=== PATIENT | female | born 1960 | race African-American/Black ===

== ENCOUNTER 2017-02-17 08:25 | Emergency (ER) | payer OTHER ==
[~2017-02-17] VITALS: Ht 165.1 cm; Wt 110.0 kg
[~2017-02-17 08:25] MED LIST: AMLO10TA2 PO; CARDCAP2 PO; DILA8TAB4 PO; GABA800T PO; GLUCTES27 XX; LEVEMIR SQ; LISI-515 PO; NAPR220T95 PO
[2017-02-17 08:26] VITALS: BP 201/88; PULSE 72; RESP 18; TEMP 98; O2SAT 99
[2017-02-17 08:46] VITALS: BP 153/73; PULSE 63; RESP 18; O2SAT 97
[2017-02-17] MEDS ORDERED: INSULIN HUMAN REGULAR 1,000 UNITS/10 ML VIAL IVP ONE (09:00)
[2017-02-17] MEDS ORDERED: SODIUM CHLOR 0.9% 1000 ML INJ 1,000 ML IV ONE (09:00)
[2017-02-17] MEDS ORDERED: ONDANSETRON HCL 4 MG/2 ML VIAL IVP ONE (09:00)
[2017-02-17] MEDS ORDERED: SODIUM CHLORIDE 0.9% FLUSH 5 ML FLUSH IVF PRN (09:00)
--- NOTE | 2017-02-17 09:07 | PD ---
HPI Chief Complaint: Abdominal Pain Time Seen by Provider: 08:42 Travel History International Travel<30 days: No Contact w/Intl Traveler<30days: No Traveled to known affect area: No History of Present Illness HPI The patient was seen and examined in the presence of the nurse. She complains of abdominal pain. Location is bilateral lower quadrant. Duration 3 days. Severity is moderate. No alleviating factors. She was drinking alcohol 3 days ago on the day it started. She is insulin-dependent diabetic and ran out of her insulin 2 days ago. She doesn't check her blood sugar. Compliance is poor. PFSH Past Medical History Hx Anticoagulant Therapy: No Arthritis: Yes Blood Disorders: No Anxiety: No Depression: No Heart Rhythm Problems: No Cancer: No Cardiovascular Problems: Yes High Cholesterol: Yes Chemotherapy: No Chest Pain: No Congestive Heart Failure: No Cerebrovascular Accident: No Diabetes: Yes Patient Takes Glucophage: No Diminished Hearing: No Endocrine: Yes Gastrointestinal Disorders: Yes GERD: Yes Genitourinary: No Hiatal Hernia: No Hypertension: Yes Immune Disorder: No Implanted Vascular Access Dvce: No Musculoskeletal: Yes Neurologic: No Psychiatric: No Reproductive: No Respiratory: No Immunizations Current: Yes Pneumonia: Yes Sickle Cell Disease: Yes (trait) Thyroid Disease: No Ulcer: No ?: Not Menopausal: Yes : 2 Para: 1 Miscarriage: 1 Past Surgical History Abdominal Surgery: No Arteriovenous Shunt: No Cardiac Surgery: No Section: Yes Ear Surgery: No Endocrine Surgery: No Eye Surgery: No Gynecologic Surgery: Yes (CSECTION) Hysterectomy: No Insulin Pump: No Joint Replacement: No Neurologic Surgery: No Oral Surgery: No Pacemaker: No Thoracic Surgery: No Other Surgery: Yes (C SECTION) Social History Alcohol Use: Yes (2-3 DRINKS WEEKLY) Tobacco Use: Yes Substance Use: No Allergies-Medications (Allergen,Severity, Reaction): Coded Allergies: Tetanus Toxoid (Verified Allergy, Severe, "SWELLING", 02/17/17) Reported Meds & Prescriptions Reported Meds & Active Scripts Active Gabapentin 800 Mg Tab 800 Mg PO BID Levemir Inj (Insulin Detemir) 1,000 unit/ 10 ML Vial 60 Units SQ BID 30 Days Do not mix with any other Insulin. Reported Lisinopril 20 Mg Tab 20 Mg PO BID Aleve (Naproxen Sodium) 220 Mg Tab 440 Mg PO BID PRN Daily Multivitamin (Multiple Vitamins W/ Minerals) 1 Cap Cap 1 Tab PO DAILY Amlodipine (Amlodipine Besylate) 10 Mg Tab 10 Mg PO DAILY Review of Systems General / Constitutional: No: Fever Eyes: No: Visual changes HENT: No: Headaches Cardiovascular: No: Chest Pain or Discomfort Respiratory: No: Shortness of Breath Gastrointestinal: Positive: Nausea, Abdominal Pain Genitourinary: No: Dysuria Musculoskeletal: No: Pain Skin: No Rash Neurologic: No: Weakness Psychiatric: No: Depression Endocrine: No: Polydipsia Hematologic/Lymphatic: No: Easy Bruising Physical Exam Narrative GENERAL: Well-nourished, well-developed patient in no apparent distress. SKIN: Warm and dry. HEAD: Atraumatic. Normocephalic. EYES: Pupils equal and round. No scleral icterus. No injection or drainage. ENT: No nasal bleeding or discharge. Mucous membranes pink and moist. NECK: Trachea midline. No JVD. CARDIOVASCULAR: Regular rate and rhythm. No murmur appreciated. RESPIRATORY: No accessory muscle use. Clear to auscultation. Breath sounds equal bilaterally. GASTROINTESTINAL: Abdomen soft, mild bilateral lower quadrant tenderness without rebound or guarding, nondistended. Hepatic and splenic margins not palpable. MUSCULOSKELETAL: No obvious deformities. No clubbing. No cyanosis. No edema. NEUROLOGICAL: Awake and alert. No obvious cranial nerve deficits. Motor grossly within normal limits. Normal speech. PSYCHIATRIC: Appropriate mood and affect; insight and judgment poor . Data Data Last Documented VS Vital Signs Date Time Temp Pulse Resp B/P Pulse Ox O2 Delivery O2 Flow Rate FiO2 02/17/17 11:53 174/87 02/17/17 11:11 63 18 98 02/17/17 08:46 Room Air 02/17/17 08:26 98.0 Orders Complete Blood Count With Diff (02/17/17 08:51) Comprehensive Metabolic Panel (02/17/17 08:51) Lipase (02/17/17 08:51) Prothrombin Time / Inr (Pt) (02/17/17 08:51) Act Partial Throm Time (Ptt) (02/17/17 08:51) Urinalysis - C+S If Indicated (02/17/17 08:51) Ct Abd/Pel W Iv Contrast(Rout) (02/17/17 08:51) Iv Access Insert/Monitor (02/17/17 08:51) NPO (02/17/17 08:51) Ondansetron Inj (Zofran Inj) (02/17/17 09:00) Sodium Chloride 0.9% Flush (Ns Flush) (02/17/17 09:00) Sodium Chlor 0.9% 1000 Ml Inj (Ns 1000 M (02/17/17 09:00) Insulin Human Regular Inj (Novolin R Inj (02/17/17 09:00) Morphine Inj (Morphine Inj) (02/17/17 11:00) Iohexol 350 Inj (Omnipaque 350 Inj) (02/17/17 11:14) Labs Laboratory Tests Test 02/17/17 02/17/17 09:40 09:44 White Blood Count 5.6 TH/MM3 Red Blood Count 4.17 MIL/MM3 Hemoglobin 12.2 GM/DL Hematocrit 37.0 % Mean Corpuscular Volume 88.8 FL Mean Corpuscular Hemoglobin 29.4 PG Mean Corpuscular Hemoglobin 33.1 % Concent Red Cell Distribution Width 12.5 % Platelet Count 138 TH/MM3 Mean Platelet Volume 10.4 FL Neutrophils (%) (Auto) 55.9 % Lymphocytes (%) (Auto) 35.5 % Monocytes (%) (Auto) 5.8 % Eosinophils (%) (Auto) 2.0 % Basophils (%) (Auto) 0.8 % Neutrophils # (Auto) 3.2 TH/MM3 Lymphocytes # (Auto) 2.0 TH/MM3 Monocytes # (Auto) 0.3 TH/MM3 Eosinophils # (Auto) 0.1 TH/MM3 Basophils # (Auto) 0.0 TH/MM3 CBC Comment DIFF FINAL Differential Comment Prothrombin Time 9.8 SEC Prothromb Time International 0.9 RATIO Ratio Activated Partial 24.3 SEC Thromboplast Time Sodium Level 140 MEQ/L Potassium Level 3.9 MEQ/L Chloride Level 106 MEQ/L Carbon Dioxide Level 27.4 MEQ/L Anion Gap 7 MEQ/L Blood Urea Nitrogen 14 MG/DL Creatinine 1.36 MG/DL Estimat Glomerular Filtration 48 ML/MIN Rate Random Glucose 323 MG/DL Calcium Level 9.3 MG/DL Total Bilirubin 0.4 MG/DL Aspartate Amino Transf 7 U/L (AST/SGOT) Alanine Aminotransferase 16 U/L (ALT/SGPT) Alkaline Phosphatase 104 U/L Total Protein 6.7 GM/DL Albumin 3.3 GM/DL Lipase 220 U/L Urine Color LIGHT-YELLOW Urine Turbidity HAZY Urine pH 5.5 Urine Specific [place] 1.014 Urine Protein TRACE mg/dL Urine Glucose (UA) 1000 mg/dL Urine Ketones NEG mg/dL Urine Occult Blood NEG Urine Nitrite NEG Urine Bilirubin NEG Urine Urobilinogen LESS THAN 2.0 MG/DL Urine Leukocyte Esterase NEG Urine RBC 4 /hpf Urine WBC 2 /hpf Urine Squamous Epithelial 2 /hpf Cells Urine Hyaline Casts 1 /lpf Microscopic Urinalysis Comment CULT NOT INDICATED MDM Medical Decision Making Medical Screen Exam Complete: Yes Emergency Medical Condition: Yes Medical Record Reviewed: Yes Differential Diagnosis Colitis, diverticulitis, ileus Narrative Course I have reviewed the patient's electronic medical record. 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 Etiology of abdominal pain is unclear. Stable for outpatient follow-up I have refilled her insulin and gabapentin Diagnosis Primary Impression: Abdominal pain Qualified Code: R10.30 - Lower abdominal pain Additional Impression: Hyperglycemia due to type 2 diabetes mellitus Qualified Code: E11.65 - Type 2 diabetes mellitus with hyperglycemia, with long-term current use of insulin Additional Instructions: The patient was advised to follow up with their physician and return if they worsen. Med/Other Pt SpecificInfo: Prescription(s) given Scripts Gabapentin 800 Mg [id number] Mg PO BID #90 TAB Ref 1 Prov:Caleb Esqueda MD 02/17/17 Insulin Detemir Inj (Levemir Inj)1,000 unit/ 10 ML Vial60 Units SQ BID 30 Days Ref 2 Do not mix with any other Insulin. Prov:Caleb Esqueda MD 02/17/17 Disposition: 01 DISCHARGE HOME Condition: Stable Claeb Esqueda MD Feb 17, 2017 09:07
[2017-02-17 10:03] LABS: AUTOMATED NEUTROPHIL # 3.2 TH/MM3 (1.8-7.7); BASOPHIL % 0.8 % (0.0-2.0); EOSINOPHIL # 0.1 TH/MM3 (0-0.4); HEMO FLAGS DIFF FINAL; LYMPH % 35.5 % (9.0-44.0); MEAN CELL VOLUME 88.8 FL (80.0-100.0); MEAN CORPUSCULAR HEMOGLOBIN 29.4 PG (27.0-34.0); MEAN CORPUSCULAR HGB CONC 33.1 % (32.0-36.0); MONO % 5.8 % (0.0-8.0); NEUT % 55.9 % (16.0-70.0); PLATELET COUNT 138 TH/MM3 (150-450); RED BLOOD COUNT 4.17 MIL/MM3 (4.00-5.30); RED CELL DISTRIBUTION WIDTH 12.5 % (11.6-17.2); WHITE BLOOD COUNT 5.6 TH/MM3 (4.0-11.0)
[2017-02-17 10:12] LABS: BLOOD, URINE NEG (NEG); COMMENT (UR) CULT NOT INDICATED; CULTURE IF INDICATED CULT NOT INDICATED; GLUCOSE,URINE 1000 mg/dL (NEG); HYALINE CAST, URINE 1 /lpf (RARE); KETONE, URINE NEG (NEG); NITRITE,URINE NEG (NEG); PH, URINE 5.5 (5.0-8.5); SQUAMOUS EPITHELIAL CELL URINE 2 /hpf (0-5); URINE COLOR LIGHT-YELLOW (YELLW/STRAW)
[2017-02-17 10:14] LABS: APTT (PATIENT) 24.3 SEC (24.3-30.1); INTERNATIONAL NORMALIZED RATIO 0.9 RATIO; PROTHROMBIN TIME - PATIENT 9.8 SEC (9.8-11.6)
[2017-02-17 10:25] LABS: ALT (GPT) 16 U/L (10-53); ANION GAP 7 MEQ/L (5-15); AST (GOT) 7 U/L (15-37); BICARBONATE 27.4 MEQ/L (21.0-32.0); BLOOD UREA NITROGEN 14 MG/DL (7-18); CHLORIDE 106 MEQ/L (98-107); GLOMERULAR FILTRATION RATE 48 ML/MIN (>89); POTASSIUM 3.9 MEQ/L (3.5-5.1); SODIUM (NA) 140 MEQ/L (136-145)
[2017-02-17 10:27] LABS: ALKALINE PHOSPHATASE 104 U/L (45-117); TOTAL BILIRUBIN ADULT 0.4 MG/DL (0.2-1.0)
[2017-02-17] MEDS ORDERED: MORPHINE SULFATE 4 MG/ML INJ IV PUSH ONE (11:00)
[2017-02-17 11:11] VITALS: BP 201/91; PULSE 63; RESP 18; O2SAT 98
[2017-02-17] MEDS ORDERED: IOHEXOL 350 MG/ML 10 ML VIAL (for RAD DIAG) IV ONE (11:14)
--- NOTE | 2017-02-17 11:27 | RADRPT ---
EXAM DATE/TIME: 02/17/2017 10:51 [facility] COMPARISON: CT ABDOMEN & PELVIS W CONTRAST, August 24, 2016, 8:37. INDICATIONS : Abdominal pain with nausea and vomiting for 3 days. IV CONTRAST: 70 cc Omnipaque 350 (iohexol) IV ORAL CONTRAST: No oral contrast ingested. RADIATION DOSE: 20.90 CTDIvol (mGy) MEDICAL HISTORY : Cardiovascular disease. Hypertension. Diabetes mellitus type 2. SURGICAL HISTORY : section. ENCOUNTER: Initial ACUITY: 3 days PAIN SCALE: 5/10 LOCATION: [facility]ominal pain TECHNIQUE: Volumetric scanning of the abdomen and pelvis was performed. Using automated exposure control and ad justment of the mA and/or kV according to patient size, radiation dose was kept as low as reasonably achievable to obtain optimal diagnostic quality images. FINDINGS: The limited portion of the lung base visualized is clear. The appearance of the liver, spleen, pancreas, adrenal glands and kidneys is within normal limits. In cidental note is made of a 9 mm simple cyst arising from the left kidney. This is mildly increased in size when compared to previous. The abdominal aorta is normal in caliber. There is no retroperitoneal lymphadenopathy. Visualized loo ps of small and large bowel in the upper abdomen are unremarkable. The anterior abdominal wall is intact. There is no free fluid within the pelvis. No iliac or inguinal adenopathy is seen. The reproductive o rgans are intact. The visualized bony structures demonstrate degenerative changes but are otherwise intact. CONCLUSION: 1. No findings to indicate bowel obstruction identified. No free air or free fluid is present. 2. Degenerative changes throughout the spine. 3. Exam is stable compared to previous study dated 08/24/16. Jerson Schwartz MD on February 17, 2017 at 11:17 Board Certified Radiologist. This report was verified electronically.
[2017-02-17 11:53] VITALS: BP 174/87
[2017-02-17] MEDS ORDERED: LEVEMIR SQ (14:23)
[2017-02-17] MEDS ORDERED: GABA800T PO (14:23)
[2017-02-17 14:38] VITALS: BP 165/89
[2017-04-02] MEDS ORDERED: NOVORP2 SQ (09:39)
[2017-04-02] MEDS ORDERED: LEVEMIR SQ (09:46)
[2017-04-02] MEDS ORDERED: GABA800T PO (09:46)
[2017-04-02] MEDS ORDERED: INSU-169 (09:46)
[2017-04-07] MEDS ORDERED: INSU-169 (12:14)
[2017-04-16] MEDS ORDERED: AMLO10TA2 PO (16:10)
[2017-04-16] MEDS ORDERED: LISI-515 PO (16:10)
[2017-04-16] MEDS ORDERED: LEVEMIR SQ (16:10)
[2017-04-29] MEDS ORDERED: AMLO10TA2 PO (11:47)
== END 2017-02-17 15:02 | disposition home or self-care (01) ==
LOC: NEPC 08:25
DX: R10.30 Lower abdominal pain, unspecified (principal); E11.65 Type 2 diabetes mellitus with hyperglycemia; R11.0 Nausea; E78.00 Pure hypercholesterolemia, unspecified; I10 Essential (primary) hypertension; D57.3 Sickle-cell trait; K21.9 Gastro-esophageal reflux disease without esophagitis; Z79.4 Long term (current) use of insulin; Z72.0 Tobacco use
CPT/HCPCS: 74177; 80053; 81001; 83690; 85025; 85610; 85730; 96374; 96375; 99284; J1815; J2270; J2405; J7030; Q9967

== ENCOUNTER → 2017-03-30 | Outpatient (CLI) | payer OTHER ==
[~2017-03-30] MED LIST changes: +BACT800T5 PO; -DILA8TAB4 PO; -GLUCTES27 XX; +INSU-169; +NOVORP2 SQ; +PYRI200T4 PO
[2017-03-30 09:32] LABS: AUTOMATED NEUTROPHIL # 4.1 TH/MM3 (1.8-7.7); BASOPHIL # 0.1 TH/MM3 (0-0.2); EOSINOPHIL # 0.1 TH/MM3 (0-0.4); EOSINOPHIL % 1.4 % (0.0-4.0); HEMO FLAGS DIFF FINAL; LYMPH % 35.9 % (9.0-44.0); LYMPHOCYTE # 2.6 TH/MM3 (1.0-4.8); MEAN CORPUSCULAR HEMOGLOBIN 30.1 PG (27.0-34.0); MEAN CORPUSCULAR HGB CONC 33.8 % (32.0-36.0); MONO % 5.3 % (0.0-8.0); NEUT % 56.4 % (16.0-70.0); PLATELET COUNT 182 TH/MM3 (150-450); RED BLOOD COUNT 4.38 MIL/MM3 (4.00-5.30); RED CELL DISTRIBUTION WIDTH 12.5 % (11.6-17.2); WHITE BLOOD COUNT 7.2 TH/MM3 (4.0-11.0)
[2017-03-30 10:13] LABS: ALKALINE PHOSPHATASE 137 U/L (45-117); ALT (GPT) 16 U/L (10-53); ANION GAP 11 MEQ/L (5-15); AST (GOT) 10 U/L (15-37); BICARBONATE 25.4 MEQ/L (21.0-32.0); BLOOD UREA NITROGEN 21 MG/DL (7-18); CHLORIDE 100 MEQ/L (98-107); GLOMERULAR FILTRATION RATE 39 ML/MIN (>89); HDL CHOLESTEROL 55.1 MG/DL (40.0-60.0); LDL CHOLESTEROL 133 MG/DL (0-99); POTASSIUM 4.7 MEQ/L (3.5-5.1); SODIUM (NA) 136 MEQ/L (136-145); TOTAL BILIRUBIN ADULT 0.5 MG/DL (0.2-1.0)
[2017-03-30 11:03] LABS: GLUCOSE,FASTING 420 MG/DL (74-99)
[2017-03-30 11:16] LABS: HEMOGLOBIN A1a 1.4 %; HEMOGLOBIN A1b 0.7 %; HEMOGLOBIN Ao 47.6 %; HEMOGLOBIN LA1C 2.6 %; HEMOGLOBIN P3 4.4 %
== END ==
LOC: CLAB 09:00
PROVIDERS: ATTEND Family Medicine
DX: E78.5 Hyperlipidemia, unspecified (principal); E11.9 Type 2 diabetes mellitus without complications; M19.90 Unspecified osteoarthritis, unspecified site; I10 Essential (primary) hypertension; N19 Unspecified kidney failure; G62.9 Polyneuropathy, unspecified
CPT/HCPCS: 36415; 80053; 80061; 83036; 84443; 85025

== ENCOUNTER 2017-04-01 11:03 | Emergency (ER) | payer OTHER ==
[~2017-04-01] VITALS: Ht 170.2 cm; Wt 105.0 kg
[~2017-04-01 11:03] MED LIST changes: -BACT800T5 PO; -INSU-169; -NOVORP2 SQ; -PYRI200T4 PO
[2017-04-01 11:09] VITALS: BP 172/70; PULSE 71; RESP 18; TEMP 98.1; TEMP 99.9; O2SAT 95
[2017-04-01 11:15] VITALS: BP 165/74; PULSE 78; RESP 16; O2SAT 99
[2017-04-01] MEDS ORDERED: NOVORP2 SQ (11:19)
[2017-04-01] MEDS ORDERED: SODIUM CHLOR 0.9% 1000 ML INJ 1,000 ML IV SCH (11:31)
--- NOTE | 2017-04-01 11:37 | PD ---
HPI Chief Complaint: Abdominal Pain Time Seen by Provider: 11:33 Travel History International Travel<30 days: No Contact w/Intl Traveler<30days: No Traveled to known affect area: No History of Present Illness HPI Patient comes in complaining of suprapubic abdominal pain that began 3 days ago. Patient states she felt she is getting a urinary tract infection is been using Azo [id number] with no improvement of her symptoms. Patient feels it is getting worse. Patient states she's has an appointment with her primary care doctor tomorrow Dr. Marshall and feels that she could not wait until then. Pain radiates to her back. Patient has reported associated dysuria and nausea but denies any vomiting. Patient reports constipation which is abnormal for her. Patient states she takes MiraLAX at least twice a week to have bowel movements. Patient denies any known fevers, chest pain, shortness of breath, or headache. PFSH Past Medical History Hx Anticoagulant Therapy: No Arthritis: Yes Blood Disorders: No Anxiety: No Depression: No Heart Rhythm Problems: No Cancer: No Cardiovascular Problems: Yes High Cholesterol: Yes Chemotherapy: No Chest Pain: No Congestive Heart Failure: No Cerebrovascular Accident: No Diabetes: Yes Diminished Hearing: No Endocrine: Yes Gastrointestinal Disorders: Yes GERD: Yes Genitourinary: No Hiatal Hernia: No Hypertension: Yes Immune Disorder: No Implanted Vascular Access Dvce: No Musculoskeletal: Yes Neurologic: No Psychiatric: No Reproductive: No Respiratory: No Immunizations Current: Yes Pneumonia: Yes Sickle Cell Disease: Yes (trait) Thyroid Disease: No Ulcer: No Tetanus Vaccination: Never Vaccinated Influenza Vaccination: No Menopausal: Yes : 2 Para: 1 Miscarriage: 1 Past Surgical History Abdominal Surgery: No Arteriovenous Shunt: No Cardiac Surgery: No Section: Yes Ear Surgery: No Endocrine Surgery: No Eye Surgery: No Gynecologic Surgery: Yes (CSECTION) Hysterectomy: No Insulin Pump: No Joint Replacement: No Neurologic Surgery: No Oral Surgery: No Pacemaker: No Thoracic Surgery: No Other Surgery: Yes (C SECTION) Social History Alcohol Use: No Tobacco Use: Yes Substance Use: No Allergies-Medications (Allergen,Severity, Reaction): Coded Allergies: Tetanus Toxoid (Verified Allergy, Severe, "SWELLING", 02/17/17) Reported Meds & Prescriptions Reported Meds & Active Scripts Active Pyridium (Phenazopyridine HCl) 200 Mg Tab 200 Mg PO Q8HR Bactrim DS (Sulfamethoxazole-Trimethoprim) 800-160 Mg Tab 1 Tab PO BID Gabapentin 800 Mg Tab 800 Mg PO BID Levemir Inj (Insulin Detemir) 1,000 unit/ 10 ML Vial 60 Units SQ BID 30 Days Do not mix with any other Insulin. Reported Novolin R Inj (Insulin Human Regular) 1,000 Unit/10 Ml Vial 0 SQ DIRECTED Sliding Scale As Directed. Lisinopril 20 Mg Tab 20 Mg PO BID Aleve (Naproxen Sodium) 220 Mg Tab 440 Mg PO BID PRN Daily Multivitamin (Multiple Vitamins W/ Minerals) 1 Cap Cap 1 Tab PO DAILY Amlodipine (Amlodipine Besylate) 10 Mg Tab 10 Mg PO DAILY Review of Systems Except as stated in HPI: all other systems reviewed are Neg Physical Exam Narrative GENERAL: Well-developed, overly nourished, in no acute distress, and non-ill appearing. SKIN: Focused skin assessment warm and dry. HEAD: Atraumatic. Normocephalic. EYES: Pupils equal and round. EOMI. No scleral icterus. No injection or drainage. ENT: No nasal bleeding or discharge. Mucous membranes pink and moist. NECK: Trachea midline. Supple. No nuclear rigidity. CARDIOVASCULAR: Regular rate and rhythm. No murmur appreciated. RESPIRATORY: No accessory muscle use. No respiratory distress. Clear to auscultation. Breath sounds equal bilaterally. GASTROINTESTINAL: Abdomen soft, tenderness suprapubic, nondistended. Hepatic and splenic margins not palpable. Normal bowel sounds 4. No pulsatile mass. No CVA tenderness. MUSCULOSKELETAL: No obvious deformities. No clubbing. No cyanosis. No edema. Full range of motion. NEUROLOGICAL: Awake and alert. No obvious cranial nerve deficits. Motor grossly within normal limits. Normal speech. PSYCHIATRIC: Appropriate mood and affect; insight and judgment normal. Data Data Last Documented VS Vital Signs Date Time Temp Pulse Resp B/P Pulse Ox O2 Delivery O2 Flow Rate FiO2 04/01/17 11:15 78 16 165/74 99 04/01/17 11:09 99.9 Orders Complete Blood Count With Diff (04/01/17 11:31) Comprehensive Metabolic Panel (04/01/17 11:31) Lipase (04/01/17 11:31) Prothrombin Time / Inr (Pt) (04/01/17 11:31) Act Partial Throm Time (Ptt) (04/01/17 11:31) Urinalysis - C+S If Indicated (04/01/17 11:31) Abdomen, Flat & Upright (04/01/17 ) Iv Access Insert/Monitor (04/01/17 11:31) Ecg Monitoring (04/01/17 11:31) Oximetry (04/01/17 11:31) Sodium Chlor 0.9% 1000 Ml Inj (Ns 1000 M (04/01/17 11:31) Sodium Chloride 0.9% Flush (Ns Flush) (04/01/17 11:45) Ondansetron Inj (Zofran Inj) (04/01/17 11:45) Phenazopyridine (Pyridium) (04/01/17 11:45) Acetaminophen (Tylenol) (04/01/17 11:45) Urine Culture (04/01/17 11:35) Ceftriaxone Inj (Rocephin Inj) (04/01/17 12:30) Labs Laboratory Tests Test 04/01/17 11:35 White Blood Count 9.1 TH/MM3 Red Blood Count 4.17 MIL/MM3 Hemoglobin 12.5 GM/DL Hematocrit 36.7 % Mean Corpuscular Volume 88.0 FL Mean Corpuscular Hemoglobin 29.9 PG Mean Corpuscular Hemoglobin 34.0 % Concent Red Cell Distribution Width 12.3 % Platelet Count 199 TH/MM3 Mean Platelet Volume 10.2 FL Neutrophils (%) (Auto) 75.3 % Lymphocytes (%) (Auto) 17.3 % Monocytes (%) (Auto) 6.0 % Eosinophils (%) (Auto) 0.9 % Basophils (%) (Auto) 0.5 % Neutrophils # (Auto) 6.9 TH/MM3 Lymphocytes # (Auto) 1.6 TH/MM3 Monocytes # (Auto) 0.5 TH/MM3 Eosinophils # (Auto) 0.1 TH/MM3 Basophils # (Auto) 0.0 TH/MM3 CBC Comment DIFF FINAL Differential Comment Prothrombin Time 9.9 SEC Prothromb Time International 0.9 RATIO Ratio Activated Partial 28.5 SEC Thromboplast Time Urine Color ORANGE Urine Turbidity HAZY Urine pH 5.5 Urine Specific [place] 1.014 Urine Protein 30 mg/dL Urine Glucose (UA) 1000 mg/dL Urine Ketones TRACE mg/dL Urine Occult Blood SMALL Urine Nitrite POS Urine Bilirubin NEG Urine Urobilinogen LESS THAN 2.0 MG/DL Urine Leukocyte Esterase LARGE Urine RBC 6 /hpf Urine WBC 138 /hpf Urine WBC Clumps FEW Urine Squamous Epithelial 1 /hpf Cells Urine Bacteria MANY /hpf Urine Mucus FEW /lpf Microscopic Urinalysis Comment CULTURE INDICATED Sodium Level 133 MEQ/L Potassium Level 4.4 MEQ/L Chloride Level 100 MEQ/L Carbon Dioxide Level 23.0 MEQ/L Anion Gap 10 MEQ/L Blood Urea Nitrogen 18 MG/DL Creatinine 1.44 MG/DL Estimat Glomerular Filtration 45 ML/MIN Rate Random Glucose 353 MG/DL Calcium Level 9.1 MG/DL Total Bilirubin 1.0 MG/DL Aspartate Amino Transf 11 U/L (AST/SGOT) Alanine Aminotransferase 15 U/L (ALT/SGPT) Alkaline Phosphatase 125 U/L Total Protein 7.3 GM/DL Albumin 3.2 GM/DL Lipase 341 U/L MDM Medical Decision Making Medical Screen Exam Complete: Yes Emergency Medical Condition: Yes Differential Diagnosis UTI, constipation, electrolyte abnormality, other Narrative Course The patient presentation with history and evaluation are consistent with UTI. There is no evidence of pyelonephritis. The patient is tolerating fluids and no fever. There is no clinical evidence to suggest atypical cervicitis, PID, appendicitis. The patient was discharged on antibiotics and given warnings to return if condition worsens in any way, fever, vomiting and unable to tolerate medications or fluids, back pain or as needed. The patient was instructed to follow up with their physician. The patient agrees with plan of care. Patient in no obvious distress upon re-evaluation. All pertinent laboratory/ Radiology result(s) discussed with patient. Patient was asked if they wanted to speak to my attending, which the patient did not wish to do at this time. Discussed patient with Dr. Collins prior to discharge, who is in agreement with plan of care and disposition. Any questions/concerns in reference to patient diagnosis/condition discussed and clarified prior to patient's discharge. Reinforced sheer importance of close follow up with patient's primary physician or primary care clinic. Instructed patient to return to ED immediately, if symptoms return/worsen. Pt showed understanding of above instructions. Further instructions and recommendations were detailed in discharge paperwork. Pt ambulated without difficulty out of ED at discharge. Diagnosis Primary Impression: UTI (lower urinary tract infection) Patient Instructions: General Instructions, Urinary Tract Infection in Women ( ED) Additional Instructions: Follow-up with your primary care physician tomorrow as scheduled. Take all medication as prescribed. Return to the emergency department if symptoms get worse. Med/Other Pt SpecificInfo: Prescription(s) given Scripts Phenazopyridine (Pyridium)200 Mg [id number] Mg PO Q8HR #6 TAB Ref 0 Prov:Prashant Collins MD 04/01/17 Sulfamethoxazole-Trimethoprim (Bactrim DS)800-160 Mg Tab1 Tab PO BID #14 TAB Ref 0 Prov:Prashant Collins MD 04/01/17 Disposition: 01 DISCHARGE HOME Condition: Stable Humphrey Dawson April 01, 2017 11:37
[2017-04-01] MEDS ORDERED: ACETAMINOPHEN 500 MG CPLT PO ONE (11:45)
[2017-04-01] MEDS ORDERED: SODIUM CHLORIDE 0.9% FLUSH 10 ML FLUSH IV FLUSH PRN (11:45)
[2017-04-01] MEDS ORDERED: ONDANSETRON HCL 4 MG/2 ML VIAL IV PUSH ONE (11:45)
[2017-04-01] MEDS ORDERED: PHENAZOPYRIDINE HCL 200 MG TAB PO ONE (11:45)
[2017-04-01 11:55] LABS: AUTOMATED NEUTROPHIL # 6.9 TH/MM3 (1.8-7.7); BASOPHIL % 0.5 % (0.0-2.0); EOSINOPHIL # 0.1 TH/MM3 (0-0.4); EOSINOPHIL % 0.9 % (0.0-4.0); HEMATOCRIT 36.7 % (35.0-46.0); HEMO FLAGS DIFF FINAL; LYMPH % 17.3 % (9.0-44.0); LYMPHOCYTE # 1.6 TH/MM3 (1.0-4.8); MEAN CORPUSCULAR HEMOGLOBIN 29.9 PG (27.0-34.0); NEUT % 75.3 % (16.0-70.0); PLATELET COUNT 199 TH/MM3 (150-450); RED BLOOD COUNT 4.17 MIL/MM3 (4.00-5.30); RED CELL DISTRIBUTION WIDTH 12.3 % (11.6-17.2); WHITE BLOOD COUNT 9.1 TH/MM3 (4.0-11.0)
[2017-04-01 12:02] LABS: APTT (PATIENT) 28.5 SEC (24.3-30.1); INTERNATIONAL NORMALIZED RATIO 0.9 RATIO; PROTHROMBIN TIME - PATIENT 9.9 SEC (9.8-11.6)
[2017-04-01 12:16] LABS: BACTERIA, URINE MANY /hpf; BLOOD, URINE SMALL (NEG); COMMENT (UR) CULTURE INDICATED; CULTURE IF INDICATED CULTURE INDICATED; GLUCOSE,URINE 1000 mg/dL (NEG); KETONE, URINE TRACE mg/dL (NEG); MUCUS URINE FEW /lpf (OCC); PH, URINE 5.5 (5.0-8.5); SQUAMOUS EPITHELIAL CELL URINE 1 /hpf (0-5)
[2017-04-01 12:17] LABS: NITRITE,URINE POS (NEG); URINE COLOR ORANGE (YELLW/STRAW)
[2017-04-01 12:20] LABS: ANION GAP 10 MEQ/L (5-15); AST (GOT) 11 U/L (15-37); BLOOD UREA NITROGEN 18 MG/DL (7-18); CHLORIDE 100 MEQ/L (98-107); GLOMERULAR FILTRATION RATE 45 ML/MIN (>89); POTASSIUM 4.4 MEQ/L (3.5-5.1); SODIUM (NA) 133 MEQ/L (136-145)
[2017-04-01 12:23] LABS: ALKALINE PHOSPHATASE 125 U/L (45-117); ALT (GPT) 15 U/L (10-53)
--- NOTE | 2017-04-01 12:24 | RADRPT ---
EXAM DATE/TIME: 04/01/2017 12:03 [facility] COMPARISON: No previous studies available for comparison. INDICATIONS : Low abdomen and low back pains x 1 week. MEDICAL HISTORY : None. SURGICAL HISTORY : None. ENCOUNTER: Initial ACUITY: 1 week PAIN SCORE: 10/10 LOCATION: [place] FINDINGS: Supine and upright views of the abdomen were performed. The abdominal bowel gas pattern is normal. No air fluid levels are seen. No abnormal masses, calcifications, or organomegaly is seen. The visu alized lower lungs are clear. No evidence of free intraperitoneal gas. The osseous structures are u nremarkable. CONCLUSION: Normal examination. Sammy Draper MD on April 01, 2017 at 12:22 Board Certified Radiologist. This report was verified electronically.
[2017-04-01] MEDS ORDERED: cefTRIAXone INJ 1,000 MG in SODIUM CHLORIDE 0.9% INJ 25 ML IV ONE (12:30)
[2017-04-01] MEDS ORDERED: PYRI200T4 PO (12:45)
[2017-04-01] MEDS ORDERED: BACT800T5 PO (12:45)
[2017-04-02] MEDS ORDERED: NOVORP2 SQ (09:39)
[2017-04-02] MEDS ORDERED: LEVEMIR SQ (09:46)
[2017-04-02] MEDS ORDERED: INSU-169 (09:46)
[2017-04-02] MEDS ORDERED: GABA800T PO (09:46)
[2017-04-07] MEDS ORDERED: INSU-169 (12:14)
[2017-04-16] MEDS ORDERED: LISI-515 PO (16:10)
[2017-04-16] MEDS ORDERED: LEVEMIR SQ (16:10)
[2017-04-16] MEDS ORDERED: AMLO10TA2 PO (16:10)
[2017-04-29] MEDS ORDERED: AMLO10TA2 PO (11:47)
== END 2017-04-01 12:59 | disposition home or self-care (01) ==
LOC: NEPC 11:03
DX: N39.0 Urinary tract infection, site not specified (principal); B96.20 Unspecified Escherichia coli [E. coli] as the cause of diseases classified elsewhere
CPT/HCPCS: 74020; 80053; 81001; 83690; 85025; 85610; 85730; 87077; 87086; 87186; 96374; 96375; 99284; J0696; J2405; J7030

== ENCOUNTER → 2017-08-25 | Outpatient (CLI) | payer OTHER ==
[~2017-08-25] MED LIST changes: +INSU-169; +NOVORP2 SQ; +[UNRECOGNIZED DRUG - CODE]
[2017-08-25 10:46] LABS: ANION GAP 8 MEQ/L (5-15); BICARBONATE 27.5 MEQ/L (21.0-32.0); BLOOD UREA NITROGEN 27 MG/DL (7-18); CHLORIDE 106 MEQ/L (98-107); GLOMERULAR FILTRATION RATE 27 ML/MIN (>89); GLUCOSE,FASTING 258 MG/DL (74-99); POTASSIUM 4.1 MEQ/L (3.5-5.1); SODIUM (NA) 141 MEQ/L (136-145)
[2017-08-25 11:32] LABS: HEMOGLOBIN A1a 1.2 %; HEMOGLOBIN A1b 0.5 %; HEMOGLOBIN Ao 50.1 %; HEMOGLOBIN F 1.4 %; HEMOGLOBIN LA1C 1.6 %; HEMOGLOBIN P3 2.9 %
== END ==
LOC: CLAB 10:07
PROVIDERS: ATTEND Nurse Practitioner Family
DX: E11.9 Type 2 diabetes mellitus without complications (principal); N28.9 Disorder of kidney and ureter, unspecified
CPT/HCPCS: 36415; 80069; 83036

== ENCOUNTER 2018-01-20 17:19 | Inpatient (IN) | payer OTHER ==
[~2018-01-20] VITALS: Ht 165.1 cm; Wt 102.2 kg
[2018-01-20] VITALS (8 sets, daily range): BP systolic 126–168; BP diastolic 60–96; PULSE 61–104; RESP 16–26; TEMP 98.5–103.1; O2SAT 90–98
[~2018-01-20 17:19] MED LIST changes: -INSU-169; -NAPR220T95 PO
[2018-01-20] MEDS ORDERED: SODIUM CHLOR 0.9% 1000 ML INJ 1,000 ML IV ONE ×3 (17:42)
[2018-01-20] MEDS ORDERED: ACETAMINOPHEN 325 MG TAB PO ONE (17:45)
[2018-01-20] MEDS ORDERED: ONDANSETRON HCL 4 MG/2 ML VIAL IV PUSH ONE (17:45)
[2018-01-20] MEDS ORDERED: MORPHINE SULFATE 2 MG/ML INJ IV PUSH ONE ×2 (17:45→19:00)
[2018-01-20] MEDS ORDERED: MULTTAB62 PO (17:52)
--- NOTE | 2018-01-20 17:52 | PD ---
HPI Chief Complaint: Pain: Acute or Chronic Time Seen by Provider: 17:38 Travel History International Travel<30 days: No Contact w/Intl Traveler<30days: No Traveled to known affect area: No History of Present Illness HPI 57-year-old female with PMH of poorly controlled diabetes, chronic back pain presents to the ED via EMS for evaluation of 10/10 lateral back pain. States this is different than her normal pain. She states that she's been feeling a little more tired than usual for the last few days but pain in the back onset today. She denies fever, chills, chest pain, palpitations, cough, shortness of breath, abdominal pain, nausea, vomiting, dysuria, numbness, tingling, weakness of the lower extremities. No treatment at home. Patient states blood sugars are routinely over 400 despite daily insulin use. PFSH Past Medical History Hx Anticoagulant Therapy: No Arthritis: Yes Blood Disorders: No Anxiety: No Depression: No Heart Rhythm Problems: No Cancer: No Cardiovascular Problems: Yes High Cholesterol: Yes Chemotherapy: No Chest Pain: No Congestive Heart Failure: No Cerebrovascular Accident: No Diabetes: Yes Diminished Hearing: No Endocrine: Yes Gastrointestinal Disorders: Yes GERD: Yes Genitourinary: No Hiatal Hernia: No Hypertension: Yes Immune Disorder: No Implanted Vascular Access Dvce: No Musculoskeletal: Yes Neurologic: No Psychiatric: No Reproductive: No Respiratory: No Immunizations Current: Yes Pneumonia: Yes Sickle Cell Disease: Yes (trait) Thyroid Disease: No Ulcer: No ?: Not Menopausal: Yes : 2 Para: 1 Miscarriage: 1 Past Surgical History Abdominal Surgery: No Arteriovenous Shunt: No Cardiac Surgery: No Section: Yes Ear Surgery: No Endocrine Surgery: No Eye Surgery: No Gynecologic Surgery: Yes (CSECTION) Hysterectomy: No Insulin Pump: No Joint Replacement: No Neurologic Surgery: No Oral Surgery: No Pacemaker: No Thoracic Surgery: No Other Surgery: Yes (C SECTION) Social History Alcohol Use: No Tobacco Use: Yes Substance Use: No Allergies-Medications (Allergen,Severity, Reaction): Coded Allergies: tetanus toxoid, adsorbed (Unverified Allergy, Severe, "SWELLING", 01/20/18) Reported Meds & Prescriptions Reported Meds & Active Scripts Active Lisinopril 20 Mg Tab 20 Mg PO BID Amlodipine (Amlodipine Besylate) 10 Mg Tab 10 Mg PO DAILY Levemir Inj (Insulin Detemir) 1,000 unit/ 10 ML Vial 85 Units SQ BID 30 Days Do not mix with any other Insulin. Gabapentin 800 Mg Tab 800 Mg PO BID Novolin R Inj (Insulin Human Regular) 1,000 Unit/10 Ml Vial 0 SQ DIRECTED Sliding Scale As Directed. Reported Multi-Vitamin/Minerals (Multiple Vitamins W/ Minerals) 1 Tab Tab 1 Tab PO DAILY Review of Systems Except as stated in HPI: all other systems reviewed are Neg Physical Exam Narrative GENERAL: Well-nourished, well-developed obese black female in no acute distress. SKIN: Focused skin assessment warm/dry. HEAD: Normocephalic. EYES: No scleral icterus. No injection or drainage. NECK: Supple, trachea midline. No JVD or lymphadenopathy. CARDIOVASCULAR: Regular rate and rhythm without murmurs, gallops, or rubs. RESPIRATORY: Breath sounds equal bilaterally. No accessory muscle use. GASTROINTESTINAL: Abdomen soft, nondistended. Active bowel sounds. Mild right- sided flank tenderness. MUSCULOSKELETAL: No cyanosis, or edema. BACK: Nontender without obvious deformity. Bilateral CVA tenderness. Data Data Last Documented VS Vital Signs Date Time Temp Pulse Resp B/P (MAP) Pulse Ox O2 Delivery O2 Flow Rate FiO2 01/20/18 19:22 101.6 01/20/18 19:20 22 01/20/18 18:43 61 96 Nasal Cannula 2.00 Orders Orders Sepsis Workup Initiated (01/20/18 ) Complete Blood Count With Diff (01/20/18 17:42) Comprehensive Metabolic Panel (01/20/18 17:42) Prothrombin Time / Inr (Pt) (01/20/18 17:42) Act Partial Throm Time (Ptt) (01/20/18 17:42) Lactic Acid Sepsis Protocol (01/20/18 17:42) Urinalysis - C+S If Indicated (01/20/18 17:42) Blood Culture (01/20/18 17:42) Chest, Single Ap (01/20/18 17:42) Blood Glucose (01/20/18 17:42) Ecg Monitoring (01/20/18 17:42) Iv Access Insert/Monitor (01/20/18 17:42) Oximetry (01/20/18 17:42) Oxygen Administration (01/20/18 17:42) Acetaminophen (Tylenol) (01/20/18 17:45) Ondansetron Inj (Zofran Inj) (01/20/18 17:45) Sodium Chlor 0.9% 1000 Ml Inj (Ns 1000 M (01/20/18 17:42) Sodium Chlor 0.9% 1000 Ml Inj (Ns 1000 M (01/20/18 17:42) Sodium Chlor 0.9% 1000 Ml Inj (Ns 1000 M (01/20/18 17:42) Morphine Inj (Morphine Inj) (01/20/18 17:45) Urine Culture (01/20/18 17:45) Ct Abd/Pel W/O Iv Contrast (01/20/18 19:00) Vancomycin Inj (Vancomycin Inj) (01/20/18 19:00) Piperacil-Tazo 2.25 Gm Premix (Zosyn 2.2 (01/20/18 19:00) Morphine Inj (Morphine Inj) (01/20/18 19:00) Admit Order (Ed Use Only) (01/20/18 19:23) Labs Laboratory Tests Test 01/20/18 17:45 White Blood Count 3.1 TH/MM3 Red Blood Count 3.80 MIL/MM3 Hemoglobin 11.5 GM/DL Hematocrit 34.3 % Mean Corpuscular Volume 90.4 FL Mean Corpuscular Hemoglobin 30.4 PG Mean Corpuscular Hemoglobin Concent 33.6 % Red Cell Distribution Width 12.5 % Platelet Count 144 TH/MM3 Mean Platelet Volume 9.7 FL Neutrophils (%) (Auto) 83.7 % Lymphocytes (%) (Auto) 13.6 % Monocytes (%) (Auto) 0.7 % Eosinophils (%) (Auto) 1.7 % Basophils (%) (Auto) 0.3 % Neutrophils # (Auto) 2.6 TH/MM3 Lymphocytes # (Auto) 0.4 TH/MM3 Monocytes # (Auto) 0.0 TH/MM3 Eosinophils # (Auto) 0.1 TH/MM3 Basophils # (Auto) 0.0 TH/MM3 CBC Comment DIFF FINAL Differential Comment Prothrombin Time 9.4 SEC Prothromb Time International Ratio 0.9 RATIO Activated Partial Thromboplast Time 21.7 SEC Urine Color LIGHT-YELLOW Urine Turbidity HAZY Urine pH 6.0 Urine Specific [place] 1.016 Urine Protein 100 mg/dL Urine Glucose (UA) 1000 mg/dL Urine Ketones NEG mg/dL Urine Occult Blood MOD Urine Nitrite NEG Urine Bilirubin NEG Urine Urobilinogen LESS THAN 2.0 MG/DL Urine Leukocyte Esterase SMALL Urine RBC 74 /hpf Urine WBC 26 /hpf Urine Squamous Epithelial Cells 2 /hpf Urine Bacteria MANY /hpf Urine Mucus FEW /lpf Microscopic Urinalysis Comment CATH-CULTURE IND Blood Urea Nitrogen 23 MG/DL Creatinine 1.87 MG/DL Random Glucose 397 MG/DL Total Protein 6.6 GM/DL Albumin 3.0 GM/DL Calcium Level 8.3 MG/DL Alkaline Phosphatase 141 U/L Aspartate Amino Transf (AST/SGOT) 15 U/L Alanine Aminotransferase (ALT/SGPT) 17 U/L Total Bilirubin 0.5 MG/DL Sodium Level 138 MEQ/L Potassium Level 4.0 MEQ/L Chloride Level 106 MEQ/L Carbon Dioxide Level 23.1 MEQ/L Anion Gap 9 MEQ/L Estimat Glomerular Filtration Rate 33 ML/MIN Lactic Acid Level 2.8 mmol/L MDM Medical Decision Making Medical Screen Exam Complete: Yes Emergency Medical Condition: Yes Differential Diagnosis Influenza versus pneumonia versus UTI versus sepsis versus poorly controlled diabetes versus other Narrative Course 57-year-old female with PMH of poorly controlled diabetes, chronic back pain presents to the ED via EMS for evaluation of 10/10 bilateral back pain. Cramping in nature. States this is different than her normal pain. Denies dysuria. Endorses mild nausea. Temp 102.7, pulse 104, BP 149/67, pulse ox 90% on room air on presentation. On exam this is an obese -[place] female in no acute distress. There is mild right flank tenderness and positive bilateral CVA tenderness. Sepsis workup was initiated. IV was established. Fluid resuscitation was initiated. She was administered 650 mg Tylenol by mouth. CBC: WBC 3.1. Left shift. Hemoglobin 11.5. INR 0.9. CMP: BUN 23, creatinine 1.87. GFR 33. Glucose 397. Lactic acid 2.8. UA: Hazy, thousand glucose, moderate occult blood, small leukocyte esterase, 26 WBCs, many bacteria, Culture indicated. CXR: No acute disease per radiology read. CT abdomen and pelvis: No renal stones identified. Mild inflammatory change around the left kidney without significant hydronephrosis. Could suggest pyelonephritis. No free air or free fluid identified. Degenerative edges of the spine. Patient was administered IV vancomycin and Zosyn. I discussed the workup with the patient and recommendation for admission. She is agreeable. I discussed the patient with Dr. Mckinnon who agrees to accept the patient to the medicine service. Please see medicine notes for disposition. Judy Franco Jan 20, 2018 17:52
[2018-01-20 18:04] LABS: AUTOMATED NEUTROPHIL # 2.6 TH/MM3 (1.8-7.7); BASOPHIL % 0.3 % (0.0-2.0); EOSINOPHIL # 0.1 TH/MM3 (0-0.4); EOSINOPHIL % 1.7 % (0.0-4.0); HEMATOCRIT 34.3 % (35.0-46.0); HEMOGLOBIN 11.5 GM/DL (11.6-15.3); LYMPH % 13.6 % (9.0-44.0); LYMPHOCYTE # 0.4 TH/MM3 (1.0-4.8); MEAN CELL VOLUME 90.4 FL (80.0-100.0); MEAN CORPUSCULAR HEMOGLOBIN 30.4 PG (27.0-34.0); MEAN CORPUSCULAR HGB CONC 33.6 % (32.0-36.0); MEAN PLATELET VOLUME 9.7 FL (7.0-11.0); MONO % 0.7 % (0.0-8.0); NEUT % 83.7 % (16.0-70.0); PLATELET COUNT 144 TH/MM3 (150-450); RED CELL DISTRIBUTION WIDTH 12.5 % (11.6-17.2); WHITE BLOOD COUNT 3.1 TH/MM3 (4.0-11.0)
[2018-01-20 18:09] LABS: BACTERIA, URINE MANY /hpf; BILIRUBIN, URINE NEG (NEG); BLOOD, URINE MOD (NEG); GLUCOSE,URINE 1000 mg/dL (NEG); KETONE, URINE NEG (NEG); MUCUS URINE FEW /lpf (OCC); NITRITE,URINE NEG (NEG); SQUAMOUS EPITHELIAL CELL URINE 2 /hpf (0-5); URINE COLOR LIGHT-YELLOW (YELLW/STRAW); URINE LEUKOCYTE ESTERASE SMALL (NEG)
--- NOTE | 2018-01-20 18:12 | RADRPT ---
EXAM DATE/TIME: 01/20/2018 17:51 [facility] COMPARISON: CHEST SINGLE AP, May 15, 2016, 9:31. INDICATIONS : Fever and shortness of breath. MEDICAL HISTORY : Diabetes mellitus type 2. Hypertension. SURGICAL HISTORY : section. ENCOUNTER: Subsequent ACUITY: 3 days PAIN SCORE: 0/10 LOCATION: chest FINDINGS: A single view of the chest demonstrates the lungs to be symmetrically aerated without evidence of mas s, infiltrate or effusion. The cardiomediastinal contours are unremarkable. Osseous structures are intact. CONCLUSION: No acute disease. Sammy Draper MD on January 20, 2018 at 18:10 Board Certified Radiologist. This report was verified electronically.
[2018-01-20 18:14] LABS: INTERNATIONAL NORMALIZED RATIO 0.9 RATIO; PROTHROMBIN TIME - PATIENT 9.4 SEC (9.8-11.6)
[2018-01-20 18:21] LABS: ALT (GPT) 17 U/L (10-53); AST (GOT) 15 U/L (15-37); BICARBONATE 23.1 MEQ/L (21.0-32.0); BLOOD UREA NITROGEN 23 MG/DL (7-18); CALCIUM 8.3 MG/DL (8.5-10.1); CHLORIDE 106 MEQ/L (98-107); CREATININE 1.87 MG/DL (0.50-1.00); GLOMERULAR FILTRATION RATE 33 ML/MIN (>89); GLUCOSE,RANDOM 397 MG/DL (74-106); SODIUM (NA) 138 MEQ/L (136-145)
[2018-01-20 18:22] LABS: LACTIC ACID SEPSIS PROTOCOL 2.8 mmol/L (0.4-2.0)
[2018-01-20 18:23] LABS: ALKALINE PHOSPHATASE 141 U/L (45-117); TOTAL BILIRUBIN ADULT 0.5 MG/DL (0.2-1.0); TOTAL PROTEIN 6.6 GM/DL (6.4-8.2)
[2018-01-20] MEDS ORDERED: PIPERACIL-TAZO 2.25 GM PREMIX 50 ML IV ONE (19:00)
[2018-01-20] MEDS ORDERED: VANCOMYCIN INJ 1,000 MG in SODIUM CHLOR 0.9% 250 ML INJ 250 ML IV ONE (19:00)
[2018-01-20] MEDS ORDERED: RESP: ALBUTEROL 2.5 MG/IPRATROPIUM 0.5 MG NEB (PRN) NEB (20:00)
[2018-01-20] MEDS ORDERED: DEXTROSE 50% IN WATER 50 ML VIAL(D50) IV PUSH PRN (20:00)
[2018-01-20] MEDS ORDERED: SODIUM CHLORIDE 0.9% FLUSH 10 ML FLUSH IV FLUSH PRN (20:00)
[2018-01-20] MEDS ORDERED: NALOXONE HCL 0.4 MG/ML AMP IV PUSH PRN (20:00)
[2018-01-20] MEDS ORDERED: GLUCAGON 1 MG/ML VIAL OTHER PRN (20:00)
[2018-01-20] MEDS ORDERED: ONDANSETRON HCL 4 MG/2 ML VIAL IVP PRN (20:00)
[2018-01-20] MEDS ORDERED: ACETAMINOPHEN 325 MG TAB PO PRN (20:00)
--- NOTE | 2018-01-20 20:10 | RADRPT ---
EXAM DATE/TIME: 01/20/2018 19:31 [facility] COMPARISON: CT ABDOMEN & PELVIS W CONTRAST, February 17, 2017, 10:51. INDICATIONS : Bilateral flank pain. ORAL CONTRAST: No oral contrast ingested. RADIATION DOSE: 13.88 CTDIvol (mGy) MEDICAL HISTORY : Hypertension. Diabetes. SURGICAL HISTORY : section. ENCOUNTER: Initial ACUITY: 3 days PAIN SCALE: 9/10 LOCATION: Bilateral flank TECHNIQUE: Volumetric scanning of the abdomen and pelvis was performed. Using automated exposure control and ad justment of the mA and/or kV according to patient size, radiation dose was kept as low as reasonably achievable to obtain optimal diagnostic quality images. DICOM format image data is available electro nically for review and comparison. FINDINGS: Right kidney/ureter: The right kidney is normal in size. No stones are seen. The ureter can be followed from most of its c ourse and is normal in caliber. No stones are seen within the ureter. Left kidney/ureter: The left kidney is normal in size. No stones are seen. There are some subtle inflammatory changes see n adjacent to the left kidney. There is no hydronephrosis. The left ureter is normal in caliber. No s tones are seen within the left ureter. Bladder: No stones are identified within the bladder. The limited portion of the lung base visualized is clear. The portions of liver and spleen visualized are intact. The pancreas is intact. The adrenal glands ar e normal in appearance. The abdominal aorta is normal in caliber. There is no retroperitoneal adenopa thy. No free air or free fluid is seen. The loops of small and large bowel are unremarkable. The ante rior abdominal wall is intact. There is no free fluid within the pelvis. No iliac or inguinal adenopa thy is present. There are degenerative changes throughout the lumbar spine. CONCLUSION: 1. No renal stones are identified. There is some very subtle inflammatory change around the left kidn ey. There is no significant hydronephrosis. This could suggest a possible pyelonephritis. 2. No free air or free fluid is identified. No findings to indicate bowel structure seen. 3. There are degenerative changes within the spine. Jerson Schwartz MD on January 20, 2018 at 20:06 Board Certified Radiologist. This report was verified electronically.
[2018-01-20] MEDS ORDERED: ENOXAPARIN SODIUM 40 MG/0.4 ML SYRINGE SQ SCH (21:00)
[2018-01-20] MEDS ORDERED: cefTRIAXone INJ 1,000 MG in SODIUM CHLORIDE 0.9% INJ 100 ML IV SCH (21:00)
--- NOTE | 2018-01-20 21:22 | HHI.HP ---
HPI Service [facility] Primary Care Physician Unknown Admission Diagnosis urosepsis Diagnoses: Travel History International Travel<30 Days: No Contact w/Intl Traveler <30 Da: No Traveled to Known Affected Are: No History of Present Illness 57-year-old female with past medical history significant for diabetes mellitus, neuropathy, degenerative disc disease, chronic kidney disease, hypertension and hyperlipidemia presents to the emergency department for evaluation of hip and back pain. The patient reports a one-week history of bilateral hip and lower back pain that has radiated to her flank. She reports increased urinary frequency/urgency. She also reports bladder cramping. Positive chills. No fevers. She endorses shortness of breath and nausea however denies chest pain and vomiting/diarrhea. She endorses chronic numbness in her hands and feet. Vital signs: Temperature 103.1, pulse 61, respirations 22, BP 128/60, pulse ox 97% on 2 L nasal cannula. Review of Systems Except as stated in HPI: all other systems reviewed are Neg Past Family Social History Past Medical History Diabetes mellitus Neuropathy Degenerative disc disease Chronic kidney disease Hypertension Hyperlipidemia Past Surgical History Reported Medications Reported Meds & Active Scripts Active Lisinopril 20 Mg Tab 20 Mg PO BID Amlodipine (Amlodipine Besylate) 10 Mg Tab 10 Mg PO DAILY Levemir Inj (Insulin Detemir) 1,000 unit/ 10 ML Vial 85 Units SQ BID 30 Days Do not mix with any other Insulin. Gabapentin 800 Mg Tab 800 Mg PO BID Novolin R Inj (Insulin Human Regular) 1,000 Unit/10 Ml Vial 0 SQ DIRECTED Sliding Scale As Directed. Reported Multi-Vitamin/Minerals (Multiple Vitamins W/ Minerals) 1 Tab Tab 1 Tab PO DAILY Allergies: Coded Allergies: tetanus toxoid, adsorbed (Unverified Allergy, Severe, "SWELLING", 01/20/18) Family History Father with diabetes mellitus and coronary artery disease Social History Smokes approximately 3 cigarettes per day. Occasional alcohol. Denies illicit drugs. Physical Exam Vital Signs Vital Signs Date Time Temp Pulse Resp B/P (MAP) Pulse Ox O2 Delivery O2 Flow Rate FiO2 01/20/18 21:13 98.5 92 18 127/62 (83) 96 01/20/18 20:00 99.2 96 16 126/60 (82) 96 Nasal Cannula 2.00 01/20/18 19:22 101.6 01/20/18 19:20 22 01/20/18 18:43 61 22 128/60 (82) 96 Nasal Cannula 2.00 01/20/18 18:28 103.1 01/20/18 18:24 Nasal Cannula 2.00 01/20/18 18:24 97 Nasal Cannula 2.00 01/20/18 17:40 102.7 104 20 149/67 (94) 90 Room Air Physical Exam GENERAL: Obese, female lying in bed SKIN: No rashes, ecchymoses or lesions. Cool and dry. HEAD: Atraumatic. Normocephalic. No temporal or scalp tenderness. EYES: Pupils equal round and reactive. Extraocular motions intact. No scleral icterus. No injection or drainage. ENT: Nose without bleeding, purulent drainage or septal hematoma. Throat without erythema, tonsillar hypertrophy or exudate. Uvula midline. Airway patent. NECK: Trachea midline. No JVD or lymphadenopathy. Supple, nontender, no meningeal signs. CARDIOVASCULAR: Regular rate and rhythm without murmurs, gallops, or rubs. RESPIRATORY: Clear to auscultation. Breath sounds equal bilaterally. No wheezes , rales, or rhonchi. GASTROINTESTINAL: Abdomen soft, non-tender, nondistended. No hepato-splenomegaly , or palpable masses. No guarding. MUSCULOSKELETAL: Extremities without clubbing, cyanosis, or edema. No joint tenderness, effusion, or edema noted. No calf tenderness. NEUROLOGICAL: Awake and alert. Cranial nerves II through XII intact. Motor and sensory grossly within normal limits. Normal speech. Laboratory Laboratory Tests Test 01/20/18 17:45 White Blood Count 3.1 Red Blood Count 3.80 Hemoglobin 11.5 Hematocrit 34.3 Mean Corpuscular Volume 90.4 Mean Corpuscular Hemoglobin 30.4 Mean Corpuscular Hemoglobin Concent 33.6 Red Cell Distribution Width 12.5 Platelet Count 144 Mean Platelet Volume 9.7 Neutrophils (%) (Auto) 83.7 Lymphocytes (%) (Auto) 13.6 Monocytes (%) (Auto) 0.7 Eosinophils (%) (Auto) 1.7 Basophils (%) (Auto) 0.3 Neutrophils # (Auto) 2.6 Lymphocytes # (Auto) 0.4 Monocytes # (Auto) 0.0 Eosinophils # (Auto) 0.1 Basophils # (Auto) 0.0 CBC Comment DIFF FINAL Differential Comment Prothrombin Time 9.4 Prothromb Time International Ratio 0.9 Activated Partial Thromboplast Time 21.7 Urine Color LIGHT-YELLOW Urine Turbidity HAZY Urine pH 6.0 Urine Specific [place] 1.016 Urine Protein 100 Urine Glucose (UA) 1000 Urine Ketones NEG Urine Occult Blood MOD Urine Nitrite NEG Urine Bilirubin NEG Urine Urobilinogen LESS THAN 2.0 Urine Leukocyte Esterase SMALL Urine RBC 74 Urine WBC 26 Urine Squamous Epithelial Cells 2 Urine Bacteria MANY Urine Mucus FEW Microscopic Urinalysis Comment CATH-CULTURE IND Blood Urea Nitrogen 23 Creatinine 1.87 Random Glucose 397 Total Protein 6.6 Albumin 3.0 Calcium Level 8.3 Alkaline Phosphatase 141 Aspartate Amino Transf (AST/SGOT) 15 Alanine Aminotransferase (ALT/SGPT) 17 Total Bilirubin 0.5 Sodium Level 138 Potassium Level 4.0 Chloride Level 106 Carbon Dioxide Level 23.1 Anion Gap 9 Estimat Glomerular Filtration Rate 33 Lactic Acid Level 2.8 Date/Time Source Procedure Growth Status 01/20/18 17:45 Blood Peripheral Aerobic Blood Culture Pending Received 01/20/18 17:45 Blood Peripheral Anaerobic Blood Culture Pending Received 01/20/18 17:45 Urine Catheterized Urine Urine Culture Pending Received Result Diagram: 01/20/18 17401/20/18 174 Caprini VTE Risk Assessment Caprini VTE Risk Assessment: No/Low Risk (score <= 1) Caprini Risk Assessment Model Point Value = 1 Point Value = 2 Point Value = 3 Point Value = 5 Age 41-60 Minor surgery BMI > 25 kg/m2 Swollen legs Varicose veins or History of unexplained or recurrent spontaneous Oral contraceptives or hormone replacement Sepsis (< 1 month) Serious lung disease, including pneumonia (< 1 month) Abnormal pulmonary function Acute myocardial infarction Congestive heart failure (< 1 month) History of inflammatory bowel disease Medical patient at bed rest Age 61-74 Arthroscopic surgery Major open surgery (> 45 min) Laparoscopic surgery (> 45 min) Malignancy Confined to bed (> 72 hours) Immobilizing plaster cast Central venous access Age >= 75 History of VTE Family history of VTE Factor V Leiden Prothrombin [id number] Lupus anticoagulant Anticardiolipin antibodies Elevated serum homocysteine Heparin-induced thrombocytopenia Other congenital or acquired thrombophilia Stroke (< 1 month) Elective arthroplasty Hip, pelvis, or leg fracture Acute spinal cord injury (< 1 month) Prophylaxis Regimen Total Risk Factor Score Risk Level Prophylaxis Regimen 0-1 Low Early ambulation 2 Moderate Order ONE of the following: *Sequential Compression Device (SCD) *Heparin 5000 units SQ BID 3-4 Higher Order ONE of the following medications: *Heparin 5000 units SQ TID *Enoxaparin/Lovenox 40 mg SQ daily (WT < 150 kg, CrCl > 30 mL/min) *Enoxaparin/Lovenox 30 mg SQ daily (WT < 150 kg, CrCl > 10-29 mL/min) *Enoxaparin/Lovenox 30 mg SQ BID (WT < 150 kg, CrCl > 30 mL/min) AND/OR *Sequential Compression Device (SCD) 5 or more Highest Order ONE of the following medications: *Heparin 5000 units SQ TID (Preferred with Epidurals) *Enoxaparin/Lovenox 40 mg SQ daily (WT < 150 kg, CrCl > 30 mL/min) *Enoxaparin/Lovenox 30 mg SQ daily (WT < 150 kg, CrCl > 10-29 mL/min) *Enoxaparin/Lovenox 30 mg SQ BID (WT < 150 kg, CrCl > 30 mL/min) AND *Sequential Compression Device (SCD) Assessment and Plan Assessment and Plan Assessment/plan: 1. Urosepsis Patient febrile with tachycardia, lactic acid 2.8 UA significant for many bacteria, 26 WBCs, small leukocyte esterase Urine culture pending Blood culture pending Rocephin Monitor for signs of shock Lactic acid pending IV fluids 2. Diabetes mellitus Continue home Levemir Sliding scale insulin Monitor blood glucose 3. Chronic kidney disease Creatinine 1.87, baseline for the patient Monitor renal function 4. Hypertension/hyperlipidemia/neuropathy Continue home medications FEN: Heart healthy diabetic diet Electrolytes: Monitor and replete when necessary Lovenox Physician Certification 2 Midnight Certification Type: Admission for Inpatient Services Order for Inpatient Services The services are ordered in accordance with Medicare regulations or non- Medicare payer requirements, as applicable. In the case of services not specified as inpatient-only, they are appropriately provided as inpatient services in accordance with the 2-midnight benchmark. Estimated LOS (days): 2 2 days is the estimated time the patient will need to remain in the hospital, assuming treatment plan goals are met and no additional complications. Post-Hospital Plan: Not yet determined Denice Mckinnon MD Jan 20, 2018 21:22
[2018-01-20] MEDS: SODIUM CHLOR 0.9% 1000 ML INJ 1,000 ML IV SCH (22:45)
[2018-01-20] MEDS: ENOXAPARIN SODIUM 30 MG/0.3 ML SYRINGE SQ SCH (22:48)
[2018-01-20] MEDS: SODIUM CHLORIDE 0.9% FLUSH 10 ML FLUSH IV FLUSH SCH (22:48)
[2018-01-20] MEDS: MORPHINE SULFATE 4 MG/ML INJ IV PUSH PRN (22:49)
[2018-01-20] MEDS: INSULIN ASPART SUPPLEMENTAL SCALE SQ SCH (23:09)
[2018-01-20] MEDS ORDERED: INSULIN ASPART 1,000 UNITS/10 ML VIAL SQ ONE (23:30)
[2018-01-20] MEDS ORDERED: INSULIN DETEMIR 100 UNITS/ML VIAL SQ ONE (23:30)
[2018-01-21 01:40] VITALS: BP 108/58; PULSE 95; RESP 18; TEMP 98.8; O2SAT 94
[2018-01-21 04:25] VITALS: BP 123/61; PULSE 78; RESP 18; TEMP 98; O2SAT 96
[2018-01-21] MEDS: MORPHINE SULFATE 4 MG/ML INJ IV PUSH PRN ×3 (04:36→17:47)
[2018-01-21] MEDS ORDERED: ACETAMINOPHEN 325 MG TAB PO PRN (06:15)
[2018-01-21] MEDS ORDERED: ACETAMINOPHEN/HYDROcodone 325 MG/5 MG TAB PO PRN (06:15)
[2018-01-21 07:34] LABS: AUTOMATED NEUTROPHIL # 10.2 TH/MM3 (1.8-7.7); BASOPHIL % 0.4 % (0.0-2.0); EOSINOPHIL # 0.2 TH/MM3 (0-0.4); EOSINOPHIL % 1.6 % (0.0-4.0); HEMATOCRIT 33.2 % (35.0-46.0); HEMOGLOBIN 11.1 GM/DL (11.6-15.3); LYMPH % 11.8 % (9.0-44.0); LYMPHOCYTE # 1.5 TH/MM3 (1.0-4.8); MEAN CELL VOLUME 89.9 FL (80.0-100.0); MEAN CORPUSCULAR HGB CONC 33.4 % (32.0-36.0); MEAN PLATELET VOLUME 10.2 FL (7.0-11.0); MONO % 6.1 % (0.0-8.0); MONOCYTE # 0.8 TH/MM3 (0-0.9); NEUT % 80.1 % (16.0-70.0); PLATELET COUNT 144 TH/MM3 (150-450); RED BLOOD COUNT 3.69 MIL/MM3 (4.00-5.30); RED CELL DISTRIBUTION WIDTH 12.6 % (11.6-17.2); WHITE BLOOD COUNT 12.7 TH/MM3 (4.0-11.0)
[2018-01-21 07:41] LABS: BICARBONATE 21.8 MEQ/L (21.0-32.0); CALCIUM 7.9 MG/DL (8.5-10.1); CREATININE 1.61 MG/DL (0.50-1.00)
[2018-01-21] MEDS: SODIUM CHLORIDE 0.9% FLUSH 10 ML FLUSH IV FLUSH SCH ×2 (07:52→20:28)
[2018-01-21] MEDS: LISINOPRIL 20 MG TAB PO SCH ×2 (07:54→20:27)
[2018-01-21] MEDS: GABAPENTIN 300 MG CAP PO SCH ×2 (07:54→20:27)
[2018-01-21] MEDS: INSULIN DETEMIR 100 UNITS/ML VIAL SQ SCH ×2 (07:55→20:37)
[2018-01-21] MEDS: ACETAMINOPHEN/HYDROcodone 325 MG/7.5 MG TAB PO PRN ×3 (07:55→20:28)
[2018-01-21] MEDS: INSULIN ASPART SUPPLEMENTAL SCALE SQ SCH ×4 (07:56→20:35)
[2018-01-21] MEDS: SODIUM CHLOR 0.9% 1000 ML INJ 1,000 ML IV SCH ×2 (07:58→15:24)
[2018-01-21 08:01] VITALS: BP 145/69; PULSE 85; RESP 20; TEMP 99.3; O2SAT 95
[2018-01-21] MEDS ORDERED: GABAPENTIN 400 MG CAP PO SCH (09:00)
[2018-01-21 11:58] VITALS: BP 141/64; PULSE 85; RESP 20; TEMP 100.1; O2SAT 95
--- NOTE | 2018-01-21 12:00 | HHI.PR ---
Subjective Remarks Follow-up of UTI and sepsis. Patient complains of back pain and weakness. Discussed with nursing Objective Vitals Vital Signs Date Time Temp Pulse Resp B/P (MAP) Pulse Ox O2 Delivery O2 Flow Rate FiO2 01/21/18 11:58 100.1 85 20 141/64 (89) 95 01/21/18 08:01 99.3 85 20 145/69 (94) 95 01/21/18 04:25 98.0 78 18 123/61 (81) 96 01/21/18 01:40 98.8 95 18 108/58 (75) 94 01/20/18 21:13 98.5 92 18 127/62 (83) 96 01/20/18 20:00 99.2 96 16 126/60 (82) 96 Nasal Cannula 2.00 01/20/18 19:22 101.6 01/20/18 19:20 22 01/20/18 18:43 61 22 128/60 (82) 96 Nasal Cannula 2.00 01/20/18 18:28 103.1 01/20/18 18:24 Nasal Cannula 2.00 01/20/18 18:24 97 Nasal Cannula 2.00 01/20/18 17:40 102.7 104 20 149/67 (94) 90 Room Air I/O 01/20/18 01/20/18 01/20/18 01/21/18 01/21/18 01/21/18 07:00 15:00 23:00 07:00 15:00 23:00 Intake Total 2100 ml Balance 2100 ml Intake IV Total 2100 ml # Voids 2 Result Diagram: 01/21/18 0701 01/21/18 0701 Imaging Last Impressions Abdomen/Pelvis CT 01/20/18 1900 Signed Impressions: Service Date/Time: Saturday, January 20, 2018 19:31 - CONCLUSION: 1. No renal stones are identified. There is some very subtle inflammatory change around the left kidney. There is no significant hydronephrosis. This could suggest a possible pyelonephritis. 2. No free air or free fluid is identified. No findings to indicate bowel structure seen. 3. There are degenerative changes within the spine. Jerson Schwartz MD Chest X-Ray 01/20/18 7382 Signed Impressions: Service Date/Time: Saturday, January 20, 2018 17:51 - CONCLUSION: No acute disease. Sammy Draper MD Objective Remarks GENERAL: Obese, female lying in bed SKIN: No rashes, ecchymoses or lesions. Cool and dry. CARDIOVASCULAR: Regular rate and rhythm without murmurs, gallops, or rubs. RESPIRATORY: Clear to auscultation. Breath sounds equal bilaterally. No wheezes , rales, or rhonchi. GASTROINTESTINAL: Abdomen soft, slightly tender left lower quadrant, nondistended no guarding. Bilateral CVA tenderness MUSCULOSKELETAL: Extremities without clubbing, cyanosis, or edema. No joint tenderness, effusion, or edema noted. No calf tenderness. NEUROLOGICAL: Awake and alert. Cranial nerves II through XII intact. Motor and sensory grossly within normal limits. Normal speech. Procedures none A/P Problem List: (1) Hyperglycemia due to type 2 diabetes mellitus ICD Code: E11.65 - Type 2 diabetes mellitus with hyperglycemia Status: Acute (2) Sepsis ICD Code: A41.9 - Sepsis, unspecified organism (3) Pyelonephritis ICD Code: N12 - Tubulo-interstitial nephritis, not specified as acute or chronic Assessment and Plan 1. Severe sepsis with left pyelonephritis and bacteremia. Continue IV hydration, IV Rocephin and follow cultures. Consult infectious disease 2. Diabetes mellitus. Uncontrolled secondary to noncompliance. Continue home Levemir, Sliding scale insulin. Monitor blood glucose 3. Chronic kidney disease stage III. Continue IV hydration and avoid nephrotoxins and monitor renal function 4. Hypertension/hyperlipidemia/neuropathy Continue home medications FEN: Heart healthy diabetic diet Electrolytes: Monitor and replete when necessary Osmani Lind MD Jan 21, 2018 12:00
--- NOTE | 2018-01-21 13:35 | PD.ID.CON ---
History of Present Illness Service ID Consult Requested By Reason for Consult Evaluation and management of sepsis, Escherichia coli bacteremia Primary Care Physician Unknown Diagnoses: History of Present Illness Ms. Ambriz is a 57-year-old female with past medical history significant for diabetes mellitus, neuropathy with a foot abscess for which I have seen her in the past. Her past medical history is also significant for degenerative disease, chronic kidney disease, hypertension and hyperlipidemia. With this background patient presents to the emergency department for evaluation of hip and back pain as well as teeth clenching chills and rigors. Patient reports approximately one week back she notices bilateral hip and lower back pain that has radiated to her flank. She reports increased urinary frequency and urgency associated with bladder cramping. She endorses shortness of breath and nausea however denies chest pain vomiting and diarrhea. Her vital signs in emergency department presentation were temperature of 103.1, pulse 61, respiratory rate 22, blood pressure 1 28 x 60 pulse 97% on 2 L nasal cannula. Patient had elevated lactic acid as well as elevated creatinine on admission. Patient underwent a sepsis workup and blood cultures are positive for Escherichia coli and hence infectious disease is consulted for evaluation and management of sepsis Escherichia coli bacteremia. Review of Systems ROS Limitations: Poor Historian Past Family Social History Allergies: Coded Allergies: tetanus toxoid, adsorbed (Unverified Allergy, Severe, "SWELLING", 01/20/18) Past Medical History Diabetes mellitus Neuropathy Degenerative disc disease Chronic kidney disease Hypertension Hyperlipidemia Past Surgical History Reported Medications Reported Meds & Active Scripts Active Lisinopril 20 Mg Tab 20 Mg PO BID Amlodipine (Amlodipine Besylate) 10 Mg Tab 10 Mg PO DAILY Levemir Inj (Insulin Detemir) 1,000 unit/ 10 ML Vial 85 Units SQ BID 30 Days Do not mix with any other Insulin. Gabapentin 800 Mg Tab 800 Mg PO BID Novolin R Inj (Insulin Human Regular) 1,000 Unit/10 Ml Vial 0 SQ DIRECTED Sliding Scale As Directed. Reported Multi-Vitamin/Minerals (Multiple Vitamins W/ Minerals) 1 Tab Tab 1 Tab PO DAILY Active Ordered Medications Current Medications Medications (Trade) Dose Ordered Sig/Danielle Route Start Time Stop Time Status Last Admin Ceftriaxone Sodium 1000 mg/ Sodium Chloride 100 ml @ 200 mls/hr Q24H IV 01/20/18 21:00 01/20/18 22:47 Sodium Chloride 1,000 ml @ 100 mls/hr Q10H IV 01/20/18 20:00 01/21/18 15:24 (NS Flush) 2 ml UNSCH PRN IV FLUSH 01/20/18 20:00 (NS Flush) 2 ml BID IV FLUSH 01/20/18 21:00 01/20/18 22:48 (Tylenol) 650 mg Q4H PRN PO 01/20/18 20:00 01/21/18 12:12 (Zofran Inj) 4 mg Q6H PRN IVP 01/20/18 20:00 (Narcan Inj) 0.4 mg UNSCH PRN IV PUSH 01/20/18 20:00 (Duoneb Neb) 1 ampule Q4HR NEB PRN NEB 01/20/18 20:00 (D50w (Vial) Inj) 50 ml UNSCH PRN IV PUSH 01/20/18 20:00 (Glucagon Inj) 1 mg UNSCH PRN OTHER 01/20/18 20:00 (NovoLOG SUPPLEMENTAL SCALE) 1 ACHS SLIDING SCALE SQ 01/20/18 21:00 01/21/18 16:15 (Morphine Inj) 4 mg Q3H PRN IV PUSH 01/20/18 20:15 01/21/18 17:47 (Lovenox Inj) 30 mg Q24H SQ 01/20/18 21:00 01/20/18 22:48 (Norvasc) 10 mg DAILY PO 01/21/18 09:00 01/21/18 07:54 (Levemir Inj) 85 units BID SQ 01/21/18 09:00 01/21/18 07:55 (Prinivil) 20 mg BID PO 01/21/18 09:00 01/21/18 07:54 (Neurontin) 600 mg BID PO 01/21/18 09:00 01/21/18 07:54 (Tylenol) 650 mg Q6H PRN PO 01/21/18 06:15 ([place] 5-325 Mg) 1 tab Q4H PRN PO 01/21/18 06:15 ([place] 7.5-325 Mg) 1 tab Q4H PRN PO 01/21/18 06:15 01/21/18 16:13 (Yi-Colace) 1 tab BID PO 01/21/18 21:00 (Senokot) 17.2 mg Q12H PRN PO 01/21/18 15:30 (Dulcolax Supp) 10 mg DAILY PRN RECTAL 01/21/18 15:30 (Lactulose Liq) 30 ml DAILY PRN PO 01/21/18 15:30 (Miralax) 17 gm DAILY PO 01/21/18 15:30 01/21/18 16:12 Family History reviewed and DC Social History Denies any alcohol, smoking or illicit drugs. Physical Exam Vital Signs Vital Signs Date Time Temp Pulse Resp B/P (MAP) Pulse Ox O2 Delivery O2 Flow Rate FiO2 01/21/18 11:58 100.1 85 20 141/64 (89) 95 01/21/18 08:01 99.3 85 20 145/69 (94) 95 01/21/18 04:25 98.0 78 18 123/61 (81) 96 01/21/18 01:40 98.8 95 18 108/58 (75) 94 01/20/18 21:13 98.5 92 18 127/62 (83) 96 01/20/18 20:00 99.2 96 16 126/60 (82) 96 Nasal Cannula 2.00 01/20/18 19:22 101.6 01/20/18 19:20 22 01/20/18 18:43 61 22 128/60 (82) 96 Nasal Cannula 2.00 01/20/18 18:28 103.1 01/20/18 18:24 Nasal Cannula 2.00 01/20/18 18:24 97 Nasal Cannula 2.00 01/20/18 17:40 102.7 104 20 149/67 (94) 90 Room Air Physical Exam GENERAL: Obese, well-developed patient, in no apparent distress. SKIN: No rashes, ecchymoses or lesions. Cool and dry. HEAD: Atraumatic. Normocephalic. No temporal or scalp tenderness. EYES: Pupils equal round and reactive. Extraocular motions intact. No scleral icterus. No injection or drainage. ENT: Nose without bleeding, purulent drainage or septal hematoma. Throat without erythema, tonsillar hypertrophy or exudate. Uvula midline. Airway patent. NECK: Trachea midline. Supple, nontender, no meningeal signs. CARDIOVASCULAR: heart sounds audible. RESPIRATORY: Clear to auscultation. Breath sounds equal bilaterally. No wheezes , rales, or rhonchi. GASTROINTESTINAL: Abdomen soft, non-tender, nondistended. MUSCULOSKELETAL: Extremities without clubbing, cyanosis, or edema. No joint tenderness, effusion, or edema noted. No calf tenderness. Negative Homans sign bilaterally. NEUROLOGICAL: Awake and alert. Nonfocal exam Psych cooperative IV line sites with no evidence of infection. Laboratory Laboratory Tests Test 01/20/18 17:45 01/20/18 22:33 01/21/18 04:41 01/21/18 07:01 White Blood Count 3.1 12.7 Red Blood Count 3.80 3.69 Hemoglobin 11.5 11.1 Hematocrit 34.3 33.2 Mean Corpuscular Volume 90.4 89.9 Mean Corpuscular Hemoglobin 30.4 30.0 Mean Corpuscular Hemoglobin Concent 33.6 33.4 Red Cell Distribution Width 12.5 12.6 Platelet Count 144 144 Mean Platelet Volume 9.7 10.2 Neutrophils (%) (Auto) 83.7 80.1 Lymphocytes (%) (Auto) 13.6 11.8 Monocytes (%) (Auto) 0.7 6.1 Eosinophils (%) (Auto) 1.7 1.6 Basophils (%) (Auto) 0.3 0.4 Neutrophils # (Auto) 2.6 10.2 Lymphocytes # (Auto) 0.4 1.5 Monocytes # (Auto) 0.0 0.8 Eosinophils # (Auto) 0.1 0.2 Basophils # (Auto) 0.0 0.0 CBC Comment DIFF FINAL AUTO DIFF Differential Comment AUTO DIFF CONFIRMED Prothrombin Time 9.4 Prothromb Time International Ratio 0.9 Activated Partial Thromboplast Time 21.7 Urine Color LIGHT-YELLOW Urine Turbidity HAZY Urine pH 6.0 Urine Specific [place] 1.016 Urine Protein 100 Urine Glucose (UA) 1000 Urine Ketones NEG Urine Occult Blood MOD Urine Nitrite NEG Urine Bilirubin NEG Urine Urobilinogen LESS THAN 2.0 Urine Leukocyte Esterase SMALL Urine RBC 74 Urine WBC 26 Urine Squamous Epithelial Cells 2 Urine Bacteria MANY Urine Mucus FEW Microscopic Urinalysis Comment CATH-CULTURE IND Blood Urea Nitrogen 23 21 Creatinine 1.87 1.61 Random Glucose 397 533 248 Total Protein 6.6 Albumin 3.0 Calcium Level 8.3 7.9 Alkaline Phosphatase 141 Aspartate Amino Transf (AST/SGOT) 15 Alanine Aminotransferase (ALT/SGPT) 17 Total Bilirubin 0.5 Sodium Level 138 139 Potassium Level 4.0 4.2 Chloride Level 106 110 Carbon Dioxide Level 23.1 21.8 Anion Gap 9 7 Estimat Glomerular Filtration Rate 33 40 Lactic Acid Level 2.8 1.5 Date/Time Source Procedure Growth Status 01/20/18 17:45 Blood Peripheral Aerobic Blood Culture - Preliminary NO GROWTH IN 1 DAY Resulted 01/20/18 17:45 Anaerobic Blood Culture - Preliminary Escherichia Coli Resulted 01/20/18 17:45 Urine Catheterized Urine Urine Culture Pending Received Result Diagram: 01/21/18 0701 01/21/18 0701 Imaging Last Impressions Abdomen/Pelvis CT 01/20/18 1900 Signed Impressions: Service Date/Time: Saturday, January 20, 2018 19:31 - CONCLUSION: 1. No renal stones are identified. There is some very subtle inflammatory change around the left kidney. There is no significant hydronephrosis. This could suggest a possible pyelonephritis. 2. No free air or free fluid is identified. No findings to indicate bowel structure seen. 3. There are degenerative changes within the spine. Jerson Schwartz MD Chest X-Ray 01/20/18 3932 Signed Impressions: Service Date/Time: Saturday, January 20, 2018 17:51 - CONCLUSION: No acute disease. Sammy Draper MD Assessment and Plan Assessment and Plan Severe sepsis present on admission Escherichia coli bacteremia likely source pyelonephritis. Appears to be transient at the present time. Escherichia coli UTI with pyelonephritis Diabetes type 2 Acute renal failure likely secondary to sepsis prerenal Recommendations: Continue ceftriaxone IV increase dose to 2 g. Repeat blood cultures 2 If bacteremia persistent despite appropriate coverage may need further workup. Follow cultures follow clinically I will be off from January 22, 2018 to January 24 2018. Other ID MDs to cover for me. Please call [facility] center Luciana Del Castillo MD Jan 21, 2018 13:35
[2018-01-21] MEDS ORDERED: LACTULOSE SYRUP 20 GM/30 ML CUP PO PRN (15:30)
[2018-01-21] MEDS ORDERED: SENNOSIDES 8.6 MG TAB PO PRN (15:30)
[2018-01-21] MEDS ORDERED: BISACODYL 10 MG SUPP RECTAL PRN (15:30)
[2018-01-21] MEDS: POLYETHYLENE GLYCOL 17 GM PKG PO SCH (16:12)
[2018-01-21 17:03] VITALS: BP 149/68; PULSE 95; RESP 18; TEMP 98.9; O2SAT 95
[2018-01-21 17:14] LABS: HEMOGLOBIN A1C 12.4 % (4.3-6.0)
[2018-01-21 20:00] VITALS: BP 145/68; PULSE 86; RESP 18; TEMP 99.9; O2SAT 94
[2018-01-21] MEDS: ENOXAPARIN SODIUM 30 MG/0.3 ML SYRINGE SQ SCH (20:27)
[2018-01-21] MEDS: DOCUSATE SODIUM 50 MG/SENNA 8.6 MG TAB PO SCH (20:27)
[2018-01-21] MEDS: cefTRIAXone INJ 2,000 MG in SODIUM CHLORIDE 0.9% INJ 100 ML IV SCH (20:53)
[2018-01-21] MEDS ORDERED: cefTRIAXone INJ 2,000 MG in SODIUM CHLORIDE 0.9% INJ 100 ML IV SCH (21:00)
[2018-01-22] MEDS: ACETAMINOPHEN/HYDROcodone 325 MG/7.5 MG TAB PO PRN ×4 (00:14→20:38)
[2018-01-22 00:50] VITALS: BP 142/71; PULSE 86; RESP 17; TEMP 99.8; O2SAT 95
[2018-01-22] MEDS: SODIUM CHLOR 0.9% 1000 ML INJ 1,000 ML IV SCH ×4 (02:00→22:00)
[2018-01-22 05:21] VITALS: BP 144/69; PULSE 89; RESP 17; TEMP 98.8; O2SAT 95
[2018-01-22 08:00] VITALS: BP 151/71; PULSE 82; RESP 19; TEMP 98.9; O2SAT 94
[2018-01-22] MEDS: INSULIN ASPART SUPPLEMENTAL SCALE SQ SCH ×4 (08:00→21:16)
[2018-01-22] MEDS: INSULIN DETEMIR 100 UNITS/ML VIAL SQ SCH ×2 (09:00→20:39)
[2018-01-22] MEDS: POLYETHYLENE GLYCOL 17 GM PKG PO SCH (09:00)
[2018-01-22] MEDS: DOCUSATE SODIUM 50 MG/SENNA 8.6 MG TAB PO SCH ×2 (09:35→20:38)
[2018-01-22] MEDS: GABAPENTIN 300 MG CAP PO SCH ×2 (09:35→20:38)
[2018-01-22] MEDS: SODIUM CHLORIDE 0.9% FLUSH 10 ML FLUSH IV FLUSH SCH ×2 (09:36→20:38)
[2018-01-22] MEDS: LISINOPRIL 20 MG TAB PO SCH ×2 (09:36→20:38)
[2018-01-22] MEDS: MORPHINE SULFATE 4 MG/ML INJ IV PUSH PRN ×2 (09:37→16:47)
[2018-01-22 12:00] VITALS: BP 129/76; PULSE 76; RESP 16; TEMP 98.1; O2SAT 95
--- NOTE | 2018-01-22 13:16 | HHI.IDPN ---
Subjective Subjective Remarks ID COVERAGE FOR DR Mkehi DA SILVA Ms. Ambriz is a 57-year-old female with past medical history significant for diabetes mellitus, neuropathy with a foot abscess for which I have seen her in the past. Her past medical history is also significant for degenerative disease, chronic kidney disease, hypertension and hyperlipidemia. With this background patient presents to the emergency department for evaluation of hip and back pain as well as teeth clenching chills and rigors. Patient reports approximately one week back she notices bilateral hip and lower back pain that has radiated to her flank. She reports increased urinary frequency and urgency associated with bladder cramping. She endorses shortness of breath and nausea however denies chest pain vomiting and diarrhea. Her vital signs in emergency department presentation were temperature of 103.1, pulse 61, respiratory rate 22, blood pressure 1 28 x 60 pulse 97% on 2 L nasal cannula. Patient had elevated lactic acid as well as elevated creatinine on admission. Patient underwent a sepsis workup and blood cultures are positive for Escherichia coli and hence infectious disease is consulted for evaluation and management of sepsis Escherichia coli bacteremia. Notes reviewed Temps low grade overnight Still with pain in hip worse on L then on R (+) nausea, no vomiting Notes slow urination BC with E coli Repeat BC negative UC with Ecoli and GBS CT A/P noted - possible pyelo on L , no hydro Antibiotics Current Medications Rocephin Medications (Trade) Dose Ordered Sig/Danielle Route Start Time Stop Time Status Last Admin Sodium Chloride 1,000 ml @ 100 mls/hr Q10H IV 01/20/18 20:00 01/21/18 15:24 (NS Flush) 2 ml UNSCH PRN IV FLUSH 01/20/18 20:00 (NS Flush) 2 ml BID IV FLUSH 01/20/18 21:00 01/22/18 09:36 (Tylenol) 650 mg Q4H PRN PO 01/20/18 20:00 01/21/18 12:12 (Zofran Inj) 4 mg Q6H PRN IVP 01/20/18 20:00 (Narcan Inj) 0.4 mg UNSCH PRN IV PUSH 01/20/18 20:00 (Duoneb Neb) 1 ampule Q4HR NEB PRN NEB 01/20/18 20:00 (D50w (Vial) Inj) 50 ml UNSCH PRN IV PUSH 01/20/18 20:00 (Glucagon Inj) 1 mg UNSCH PRN OTHER 01/20/18 20:00 (NovoLOG SUPPLEMENTAL SCALE) 1 ACHS SLIDING SCALE SQ 01/20/18 21:00 01/21/18 20:35 (Morphine Inj) 4 mg Q3H PRN IV PUSH 01/20/18 20:15 01/22/18 09:37 (Lovenox Inj) 30 mg Q24H SQ 01/20/18 21:00 01/21/18 20:27 (Norvasc) 10 mg DAILY PO 01/21/18 09:00 01/22/18 09:35 (Levemir Inj) 85 units BID SQ 01/21/18 09:00 01/21/18 20:37 (Prinivil) 20 mg BID PO 01/21/18 09:00 01/22/18 09:36 (Neurontin) 600 mg BID PO 01/21/18 09:00 01/22/18 09:35 (Tylenol) 650 mg Q6H PRN PO 01/21/18 06:15 ([place] 5-325 Mg) 1 tab Q4H PRN PO 01/21/18 06:15 ([place] 7.5-325 Mg) 1 tab Q4H PRN PO 01/21/18 06:15 01/22/18 13:02 (Yi-Colace) 1 tab BID PO 01/21/18 21:00 01/22/18 09:35 (Senokot) 17.2 mg Q12H PRN PO 01/21/18 15:30 01/21/18 20:57 (Dulcolax Supp) 10 mg DAILY PRN RECTAL 01/21/18 15:30 (Lactulose Liq) 30 ml DAILY PRN PO 01/21/18 15:30 01/22/18 09:43 (Miralax) 17 gm DAILY PO 01/21/18 15:30 01/21/18 16:12 Ceftriaxone Sodium 2000 mg/ Sodium Chloride 100 ml @ 200 mls/hr Q24H IV 01/21/18 21:00 01/21/18 20:53 Lines PIV Past Medical History Diabetes mellitus Neuropathy Degenerative disc disease Chronic kidney disease Hypertension Hyperlipidemia Past Surgical History Allergies: Coded Allergies: tetanus toxoid, adsorbed (Unverified Allergy, Severe, "SWELLING", 2/21/18) Objective . Vital Signs Date Time Temp Pulse Resp B/P (MAP) Pulse Ox O2 Delivery O2 Flow Rate FiO2 01/22/18 08:00 98.9 82 19 151/71 (97) 94 01/22/18 05:21 98.8 89 17 144/69 (94) 95 01/22/18 00:50 99.8 86 17 142/71 (94) 95 01/21/18 20:00 99.9 86 18 145/68 (93) 94 01/21/18 17:03 98.9 95 18 149/68 (95) 95 . Laboratory Tests Test 01/20/18 17:45 01/21/18 07:01 White Blood Count 3.1 TH/MM3 12.7 TH/MM3 Red Blood Count 3.80 MIL/MM3 3.69 MIL/MM3 Hemoglobin 11.5 GM/DL 11.1 GM/DL Hematocrit 34.3 % 33.2 % Mean Corpuscular Volume 90.4 FL 89.9 FL Mean Corpuscular Hemoglobin 30.4 PG 30.0 PG Mean Corpuscular Hemoglobin Concent 33.6 % 33.4 % Red Cell Distribution Width 12.5 % 12.6 % Platelet Count 144 TH/MM3 144 TH/MM3 Mean Platelet Volume 9.7 FL 10.2 FL Neutrophils (%) (Auto) 83.7 % 80.1 % Lymphocytes (%) (Auto) 13.6 % 11.8 % Monocytes (%) (Auto) 0.7 % 6.1 % Eosinophils (%) (Auto) 1.7 % 1.6 % Basophils (%) (Auto) 0.3 % 0.4 % Neutrophils # (Auto) 2.6 TH/MM3 10.2 TH/MM3 Lymphocytes # (Auto) 0.4 TH/MM3 1.5 TH/MM3 Monocytes # (Auto) 0.0 TH/MM3 0.8 TH/MM3 Eosinophils # (Auto) 0.1 TH/MM3 0.2 TH/MM3 Basophils # (Auto) 0.0 TH/MM3 0.0 TH/MM3 CBC Comment DIFF FINAL AUTO DIFF Differential Comment AUTO DIFF CONFIRMED Laboratory Tests Test 01/20/18 17:45 01/20/18 22:33 01/21/18 04:41 01/21/18 07:01 Blood Urea Nitrogen 23 MG/DL 21 MG/DL Creatinine 1.87 MG/DL 1.61 MG/DL Random Glucose 397 MG/DL 533 MG/DL 248 MG/DL Total Protein 6.6 GM/DL Albumin 3.0 GM/DL Calcium Level 8.3 MG/DL 7.9 MG/DL Alkaline Phosphatase 141 U/L Aspartate Amino Transf (AST/SGOT) 15 U/L Alanine Aminotransferase (ALT/SGPT) 17 U/L Total Bilirubin 0.5 MG/DL Sodium Level 138 MEQ/L 139 MEQ/L Potassium Level 4.0 MEQ/L 4.2 MEQ/L Chloride Level 106 MEQ/L 110 MEQ/L Carbon Dioxide Level 23.1 MEQ/L 21.8 MEQ/L Anion Gap 9 MEQ/L 7 MEQ/L Estimat Glomerular Filtration Rate 33 ML/MIN 40 ML/MIN Lactic Acid Level 2.8 mmol/L 1.5 mmol/L Hemoglobin A1c 12.4 % Microbiology Date/Time Source Procedure Growth Status 01/21/18 22:00 Blood Peripheral Aerobic Blood Culture - Preliminary NO GROWTH IN 1 DAY Resulted 01/21/18 22:00 Blood Peripheral Anaerobic Blood Culture - Preliminary NO GROWTH IN 1 DAY Resulted 01/21/18 22:00 Blood Peripheral Aerobic Blood Culture - Preliminary NO GROWTH IN 1 DAY Resulted 01/21/18 22:00 Blood Peripheral Anaerobic Blood Culture - Preliminary NO GROWTH IN 1 DAY Resulted 01/20/18 17:45 Blood Peripheral Aerobic Blood Culture - Preliminary Gram Negative [place] Resulted 01/20/18 17:45 Anaerobic Blood Culture - Preliminary Escherichia Coli Resulted 01/20/18 17:40 Blood Peripheral Aerobic Blood Culture - Preliminary NO GROWTH IN 2 DAYS Resulted 01/20/18 17:40 Anaerobic Blood Culture - Preliminary Gram Negative [place] Resulted 01/20/18 17:45 Urine Catheterized Urine Urine Culture - Final Escherichia Coli Group B Beta Strep Complete Imaging Last Impressions Abdomen/Pelvis CT 01/20/18 1900 Signed Impressions: Service Date/Time: Saturday, January 20, 2018 19:31 - CONCLUSION: 1. No renal stones are identified. There is some very subtle inflammatory change around the left kidney. There is no significant hydronephrosis. This could suggest a possible pyelonephritis. 2. No free air or free fluid is identified. No findings to indicate bowel structure seen. 3. There are degenerative changes within the spine. Jerson Schwartz MD Chest X-Ray 01/20/18 9422 Signed Impressions: Service Date/Time: Saturday, January 20, 2018 17:51 - CONCLUSION: No acute disease. Sammy Draper MD Physical Exam GENERAL: Obese, awake and alert, NAD. SKIN: No rashes, ecchymoses or lesions. Cool and dry. HEAD: Atraumatic. Normocephalic. No temporal or scalp tenderness. EYES: Pupils equal round and reactive. Extraocular motions intact. No scleral icterus. No injection or drainage. ENT: Nose without bleeding, purulent drainage or septal hematoma. TMoist mucosa , no oral lesions NECK: Trachea midline. Supple, nontender, no meningeal signs. CARDIOVASCULAR: heart sounds audible. RESPIRATORY: Clear to auscultation. Breath sounds equal bilaterally. No wheezes , rales, or rhonchi. GASTROINTESTINAL: Abdomen soft, non-tender, nondistended. MUSCULOSKELETAL: Extremities without clubbing, cyanosis, or edema. No calf tenderness. Negative Homans sign bilaterally. NEUROLOGICAL: Awake and alert. Nonfocal exam Psych cooperative IV line sites with no evidence of infection. Assessment & Plan Remarks Severe sepsis present on admission Escherichia coli bacteremia due to pyelonephritis. Appears to be transient at the present time. Escherichia coli and GBS UTI with pyelonephritis Diabetes type 2 Acute renal failure likely secondary to sepsis prerenal Neutropenia on admission, due to sepsis, now with leukocytosis Recommendations: Continue ceftriaxone IV increase dose to 2 g. Follow repeat blood cultures 2 If bacteremia persistent despite appropriate coverage may need further workup. Follow cultures Monitor progress D/W Niru Narayan MD Jan 22, 2018 13:16
--- NOTE | 2018-01-22 14:07 | HHI.PR ---
Subjective Remarks Follow-up UTI. Patient with improving back pain. Also complains of left ear pain radiating to left side of the face associated with nasal congestion discussed with nursing Objective Vitals Vital Signs Date Time Temp Pulse Resp B/P (MAP) Pulse Ox O2 Delivery O2 Flow Rate FiO2 01/22/18 12:00 98.1 76 16 129/76 (93) 95 01/22/18 08:00 98.9 82 19 151/71 (97) 94 01/22/18 05:21 98.8 89 17 144/69 (94) 95 01/22/18 00:50 99.8 86 17 142/71 (94) 95 01/21/18 20:00 99.9 86 18 145/68 (93) 94 01/21/18 17:03 98.9 95 18 149/68 (95) 95 I/O 01/21/18 01/21/18 01/21/18 01/22/18 01/22/18 01/22/18 07:00 15:00 23:00 07:00 15:00 23:00 Intake Total 761 ml 240 ml Balance 761 ml 240 ml Intake Oral 240 ml IV Total 761 ml # Voids 2 1 2 Result Diagram: 01/21/1870001/21/18 07 Objective Remarks GENERAL: Obese, female lying in bed SKIN: No rashes, ecchymoses or lesions. Cool and dry. Left TM intact CARDIOVASCULAR: Regular rate and rhythm without murmurs, gallops, or rubs. RESPIRATORY: Clear to auscultation. Breath sounds equal bilaterally. No wheezes , rales, or rhonchi. GASTROINTESTINAL: Abdomen soft, slightly tender left lower quadrant, nondistended no guarding. Bilateral CVA tenderness MUSCULOSKELETAL: Extremities without clubbing, cyanosis, or edema. No joint tenderness, effusion, or edema noted. No calf tenderness. NEUROLOGICAL: Awake and alert. Cranial nerves II through XII intact. Motor and sensory grossly within normal limits. Normal speech. Procedures none A/P Problem List: (1) Hyperglycemia due to type 2 diabetes mellitus ICD Code: E11.65 - Type 2 diabetes mellitus with hyperglycemia Status: Acute (2) Sepsis ICD Code: A41.9 - Sepsis, unspecified organism (3) Pyelonephritis ICD Code: N12 - Tubulo-interstitial nephritis, not specified as acute or chronic Assessment and Plan 1. Severe sepsis with left pyelonephritis and E. coli bacteremia. Continue IV hydration, IV Rocephin and follow cultures. Consulted infectious disease 2. Diabetes mellitus. Uncontrolled secondary to noncompliance. Improving. Continue home Levemir, Sliding scale insulin. Monitor blood glucose 3. Chronic kidney disease stage III. Continue IV hydration and avoid nephrotoxins and monitor renal function 4. Hypertension/hyperlipidemia/neuropathy Continue home medications 5. Eustachian tube dysfunction likely from allergy. Claritin and nasal spray and monitor FEN: Heart healthy diabetic diet Electrolytes: Monitor and replete when necessary Lovenox Osmani Ma MD Jan 22, 2018 14:07
[2018-01-22 16:00] VITALS: BP 133/68; PULSE 78; RESP 18; TEMP 97.9; O2SAT 95
[2018-01-22] MEDS ORDERED: SODIUM CHLORIDE 0.65% NASAL SPRAY 45 ML BTL EACH NARE PRN (19:30)
[2018-01-22] MEDS: cefTRIAXone INJ 2,000 MG in SODIUM CHLORIDE 0.9% INJ 100 ML IV SCH (20:38)
[2018-01-22] MEDS: ENOXAPARIN SODIUM 30 MG/0.3 ML SYRINGE SQ SCH (20:39)
[2018-01-22] MEDS: LORATADINE 10 MG TAB PO SCH (20:44)
[2018-01-22 20:48] VITALS: BP 183/86; PULSE 106; RESP 17; TEMP 102.5; O2SAT 93
[2018-01-23] VITALS (7 sets, daily range): BP systolic 149–222; BP diastolic 70–102; PULSE 78–96; RESP 17–18; TEMP 98.7–100.2; O2SAT 90–97
[2018-01-23] MEDS: ACETAMINOPHEN/HYDROcodone 325 MG/7.5 MG TAB PO PRN ×3 (06:12→18:23)
[2018-01-23] MEDS: INSULIN ASPART SUPPLEMENTAL SCALE SQ SCH ×4 (08:00→20:46)
[2018-01-23] MEDS: LISINOPRIL 20 MG TAB PO SCH ×2 (08:13→20:25)
[2018-01-23] MEDS: GABAPENTIN 300 MG CAP PO SCH ×2 (08:13→20:25)
[2018-01-23] MEDS: LORATADINE 10 MG TAB PO SCH (08:13)
[2018-01-23] MEDS: INSULIN DETEMIR 100 UNITS/ML VIAL SQ SCH ×2 (09:00→20:46)
[2018-01-23] MEDS: SODIUM CHLORIDE 0.9% FLUSH 10 ML FLUSH IV FLUSH SCH ×2 (09:00→20:26)
[2018-01-23] MEDS: DOCUSATE SODIUM 50 MG/SENNA 8.6 MG TAB PO SCH ×2 (09:00→20:26)
[2018-01-23] MEDS: POLYETHYLENE GLYCOL 17 GM PKG PO SCH (09:00)
[2018-01-23 11:16] LABS: AUTOMATED NEUTROPHIL # 4.7 TH/MM3 (1.8-7.7); BASOPHIL % 0.6 % (0.0-2.0); EOSINOPHIL # 0.1 TH/MM3 (0-0.4); EOSINOPHIL % 1.6 % (0.0-4.0); HEMATOCRIT 29.9 % (35.0-46.0); HEMOGLOBIN 10.3 GM/DL (11.6-15.3); LYMPH % 21.1 % (9.0-44.0); LYMPHOCYTE # 1.5 TH/MM3 (1.0-4.8); MEAN CORPUSCULAR HEMOGLOBIN 30.5 PG (27.0-34.0); MEAN CORPUSCULAR HGB CONC 34.3 % (32.0-36.0); MEAN PLATELET VOLUME 9.3 FL (7.0-11.0); MONO % 8.9 % (0.0-8.0); MONOCYTE # 0.6 TH/MM3 (0-0.9); NEUT % 67.8 % (16.0-70.0); PLATELET COUNT 167 TH/MM3 (150-450); RED BLOOD COUNT 3.36 MIL/MM3 (4.00-5.30); RED CELL DISTRIBUTION WIDTH 12.8 % (11.6-17.2); WHITE BLOOD COUNT 6.9 TH/MM3 (4.0-11.0)
[2018-01-23 11:47] LABS: BICARBONATE 23.2 MEQ/L (21.0-32.0); CALCIUM 8.8 MG/DL (8.5-10.1); CREATININE 1.05 MG/DL (0.50-1.00); MAGNESIUM 1.9 MG/DL (1.5-2.5)
--- NOTE | 2018-01-23 14:32 | HHI.PR ---
Subjective Remarks Follow-up pyelonephritis. Continues to have abdominal and low back pain. Also reports of dyspnea on exertion associated with wheezing she is a smoker. Discussed with nursing Objective Vitals Vital Signs Date Time Temp Pulse Resp B/P (MAP) Pulse Ox O2 Delivery O2 Flow Rate FiO2 01/23/18 11:59 87 18 193/90 (124) 97 170/80 (110) 01/23/18 09:56 2.00 01/23/18 08:00 99.0 82 18 167/77 (107) 90 01/23/18 05:44 99.4 92 17 149/97 (114) 94 01/23/18 00:57 99.8 88 17 154/82 (106) 94 01/22/18 20:48 102.5 106 17 183/86 (118) 93 01/22/18 20:00 Nasal Cannula 2.00 01/22/18 16:00 97.9 78 18 133/68 (89) 95 I/O 01/22/18 01/22/18 01/22/18 01/23/18 01/23/18 01/23/18 07:00 15:00 23:00 07:00 15:00 23:00 Intake Total 240 ml 240 ml 100 ml 300 ml 950 ml Balance 240 ml 240 ml 100 ml 300 ml 950 ml Intake Oral 240 ml 240 ml 300 ml IV Total 100 ml 950 ml # Voids 2 3 1 3 # Bowel Movements 1 1 Result Diagram: 01/23/18 1040 01/23/18 1040 Imaging Last Impressions Chest X-Ray 01/23/18 0000 Signed Impressions: Service Date/Time: Tuesday, January 23, 2018 14:44 - CONCLUSION: No acute disease. No significant change has occurred. Solomon Ramírez MD Abdomen/Pelvis CT 01/20/18 1900 Signed Impressions: Service Date/Time: Saturday, January 20, 2018 19:31 - CONCLUSION: 1. No renal stones are identified. There is some very subtle inflammatory change around the left kidney. There is no significant hydronephrosis. This could suggest a possible pyelonephritis. 2. No free air or free fluid is identified. No findings to indicate bowel structure seen. 3. There are degenerative changes within the spine. Jerson Schwartz MD Objective Remarks GENERAL: Obese, female lying in bed SKIN: No rashes, ecchymoses or lesions. Cool and dry. Left TM intact CARDIOVASCULAR: Regular rate and rhythm without murmurs, gallops, or rubs. RESPIRATORY: Clear to auscultation. Decreased breath sounds equal bilaterally. No wheezes, rales, or rhonchi. GASTROINTESTINAL: Abdomen soft, slightly tender left lower quadrant, nondistended no guarding. Bilateral CVA tenderness MUSCULOSKELETAL: Extremities without clubbing, cyanosis, or edema. No joint tenderness, effusion, or edema noted. No calf tenderness. NEUROLOGICAL: Awake and alert. Cranial nerves II through XII intact. Motor and sensory grossly within normal limits. Normal speech. Procedures none A/P Problem List: (1) Hyperglycemia due to type 2 diabetes mellitus ICD Code: E11.65 - Type 2 diabetes mellitus with hyperglycemia Status: Acute (2) Sepsis ICD Code: A41.9 - Sepsis, unspecified organism (3) Pyelonephritis ICD Code: N12 - Tubulo-interstitial nephritis, not specified as acute or chronic Assessment and Plan 1. Severe sepsis with left pyelonephritis and E. coli bacteremia. Patient continues to have fever T-max 102. Continue IV hydration, IV Rocephin and follow cultures negative to date since 01/21. Will alert infectious disease 2. Diabetes mellitus. Uncontrolled secondary to noncompliance. Improving. Continue home Levemir decreased to 40 units twice a day secondary to hypoglycemia, Sliding scale insulin. Monitor blood glucose. Hypoglycemia protocol 3. Chronic kidney disease stage III. Improving since discontinued IV hydration and avoid nephrotoxins and monitor renal function 4. Hypertension/hyperlipidemia/neuropathy. BP elevated will discontinue IV hydration continue home medications 5. Eustachian tube dysfunction likely from allergy. Stable continue Claritin and nasal spray and monitor 6. Dyspnea on exertion. Possible etiologies are the following COPD versus fluid overload versus uncontrolled hypertension. Obtain chest x-ray discontinue IV hydration. FEN: Heart healthy diabetic diet Electrolytes: Monitor and replete when necessary Lovenox Discharge Planning Not ready for discharge needing IV antibiotics at this time Osmani Ma MD Jan 23, 2018 14:32
[2018-01-23] MEDS ORDERED: ENALAPRILAT 1.25 MG/ML VIAL IV PUSH PRN (14:45)
--- NOTE | 2018-01-23 14:57 | RADRPT ---
EXAM DATE/TIME: 01/23/2018 14:44 [place] COMPARISON: CHEST SINGLE AP, January 20, 2018, 17:51. INDICATIONS : Shortness of breath MEDICAL HISTORY : Hypertension. Diabetes SURGICAL HISTORY : section ENCOUNTER: Initial ACUITY: 1 day PAIN SCORE: 0/10 LOCATION: Bilateral chest FINDINGS: A single view of the chest demonstrates the lungs to be symmetrically aerated without evidence of mas s, infiltrate or effusion. The cardiomediastinal contours are unremarkable. Osseous structures are intact. CONCLUSION: No acute disease. No significant change has occurred. Solomon Ramírez MD on January 23, 2018 at 14:54 Board Certified Radiologist. This report was verified electronically.
[2018-01-23] MEDS: cloNIDine HCL 0.1 MG TAB PO PRN ×2 (18:03→20:24)
[2018-01-23] MEDS: cefTRIAXone INJ 2,000 MG in SODIUM CHLORIDE 0.9% INJ 100 ML IV SCH ×2 (20:26→21:00)
[2018-01-23] MEDS: ENOXAPARIN SODIUM 30 MG/0.3 ML SYRINGE SQ SCH (20:26)
[2018-01-23] MEDS: MORPHINE SULFATE 4 MG/ML INJ IV PUSH PRN (20:27)
[2018-01-24] VITALS: BP 161/70; PULSE 78; RESP 18; TEMP 98.9; O2SAT 96
[2018-01-24] MEDS: ACETAMINOPHEN/HYDROcodone 325 MG/7.5 MG TAB PO PRN ×5 (00:58→20:58)
[2018-01-24 04:45] VITALS: BP 164/72; PULSE 81; RESP 18; TEMP 98.4; O2SAT 97
[2018-01-24 08:00] VITALS: BP 150/66; PULSE 79; RESP 18; TEMP 98.9; O2SAT 90
[2018-01-24] MEDS: GABAPENTIN 300 MG CAP PO SCH ×2 (08:29→20:58)
[2018-01-24] MEDS: LISINOPRIL 20 MG TAB PO SCH ×2 (08:29→20:58)
[2018-01-24] MEDS: INSULIN DETEMIR 100 UNITS/ML VIAL SQ SCH ×2 (08:30→20:59)
[2018-01-24] MEDS: LACTOBACILLUS ACIDOPHILUS TAB PO SCH ×3 (08:32→18:00)
[2018-01-24] MEDS: LORATADINE 10 MG TAB PO SCH (08:32)
[2018-01-24] MEDS: SODIUM CHLORIDE 0.9% FLUSH 10 ML FLUSH IV FLUSH SCH ×2 (09:25→20:59)
[2018-01-24] MEDS: INSULIN ASPART SUPPLEMENTAL SCALE SQ SCH ×4 (09:39→21:00)
[2018-01-24] MEDS ORDERED: cefTRIAXone INJ 2,000 MG in SODIUM CHLORIDE 0.9% INJ 100 ML IV SCH (10:00)
[2018-01-24] MEDS: MORPHINE SULFATE 4 MG/ML INJ IV PUSH PRN ×3 (10:50→23:27)
[2018-01-24 12:00] VITALS: BP 120/57; PULSE 68; RESP 18; TEMP 97.3; O2SAT 90
[2018-01-24 12:02] LABS: BICARBONATE 25.3 MEQ/L (21.0-32.0); CALCIUM 8.8 MG/DL (8.5-10.1); CREATININE 0.97 MG/DL (0.50-1.00); MAGNESIUM 1.9 MG/DL (1.5-2.5)
--- NOTE | 2018-01-24 15:50 | HHI.PR ---
Subjective Remarks Follow-up E. coli bacteremia. She is doing better with less facial and ear pain T-max 100.2. No more diarrhea. Discussed with nursing Objective Vitals Vital Signs Date Time Temp Pulse Resp B/P (MAP) Pulse Ox O2 Delivery O2 Flow Rate FiO2 01/24/18 12:00 97.3 68 18 120/57 (78) 90 01/24/18 11:23 95 2.00 01/24/18 08:00 98.9 79 18 150/66 (94) 90 01/24/18 04:45 98.4 81 18 164/72 (102) 97 01/24/18 00:00 98.9 78 18 161/70 (100) 96 01/23/18 23:53 98.9 78 18 161/70 (100) 96 01/23/18 20:15 Nasal Cannula 2.00 01/23/18 20:00 100.2 96 18 222/102 (142) 91 01/23/18 16:51 98.7 82 18 184/85 (118) 91 Manual Cuff/Auscultation I/O 01/23/18 01/23/18 01/23/18 01/24/18 01/24/18 01/24/18 07:00 15:00 23:00 07:00 15:00 23:00 Intake Total 300 ml 950 ml 60 ml 300 ml Balance 300 ml 950 ml 60 ml 300 ml Intake Oral 300 ml 60 ml 200 ml IV Total 950 ml 100 ml # Voids 3 2 1 Result Diagram: 01/23/18 1040 01/24/18 1100 Imaging Last Impressions Chest X-Ray 01/23/18 0000 Signed Impressions: Service Date/Time: Tuesday, January 23, 2018 14:44 - CONCLUSION: No acute disease. No significant change has occurred. Solomon Ramírez MD Abdomen/Pelvis CT 01/20/18 1900 Signed Impressions: Service Date/Time: Saturday, January 20, 2018 19:31 - CONCLUSION: 1. No renal stones are identified. There is some very subtle inflammatory change around the left kidney. There is no significant hydronephrosis. This could suggest a possible pyelonephritis. 2. No free air or free fluid is identified. No findings to indicate bowel structure seen. 3. There are degenerative changes within the spine. Jerson Schwartz MD Objective Remarks GENERAL: Obese, female lying in bed SKIN: No rashes, ecchymoses or lesions. Cool and dry. Left TM intact CARDIOVASCULAR: Regular rate and rhythm without murmurs, gallops, or rubs. RESPIRATORY: Clear to auscultation. Decreased breath sounds equal bilaterally. No wheezes, rales, or rhonchi. GASTROINTESTINAL: Abdomen soft, slightly tender left lower quadrant, nondistended no guarding. Bilateral CVA tenderness MUSCULOSKELETAL: Extremities without clubbing, cyanosis, or edema. No joint tenderness, effusion, or edema noted. No calf tenderness. NEUROLOGICAL: Awake and alert. Cranial nerves II through XII intact. Motor and sensory grossly within normal limits. Normal speech. Procedures none A/P Problem List: (1) Hyperglycemia due to type 2 diabetes mellitus ICD Code: E11.65 - Type 2 diabetes mellitus with hyperglycemia Status: Acute (2) Sepsis ICD Code: A41.9 - Sepsis, unspecified organism (3) Pyelonephritis ICD Code: N12 - Tubulo-interstitial nephritis, not specified as acute or chronic Assessment and Plan 1. Severe sepsis with left pyelonephritis and E. coli bacteremia. Clinically improving with decreasing fever curve T-max 100.2. Continue IV Rocephin and follow up repeat cultures negative to date since 01/21. 2. Diabetes mellitus. Uncontrolled secondary to noncompliance. Improving. Continue home Levemir decreased to 40 units twice a day secondary to hypoglycemia, Sliding scale insulin. Hypoglycemia protocol 3. Chronic kidney disease stage III. Improving since discontinued IV hydration and avoid nephrotoxins and monitor renal function 4. Hypertension/hyperlipidemia/neuropathy. BP elevated will discontinue IV hydration continue home medications 5. Eustachian tube dysfunction likely from allergy. Stable continue Claritin and nasal spray and monitor 6. Dyspnea on exertion. DDx: COPD versus fluid overload versus uncontrolled hypertension. Rpt chest x-ray without acute findings. Improved FEN: Heart healthy diabetic diet Electrolytes: Monitor and replete when necessary Lovenox Discharge Planning Discharge when cleared by infectious disease Osmani Ma MD Jan 24, 2018 15:50
[2018-01-24 16:00] VITALS: BP 154/67; PULSE 74; RESP 18; TEMP 98.5; O2SAT 90
[2018-01-24 20:00] VITALS: BP 147/64; PULSE 70; RESP 18; TEMP 98; O2SAT 92
[2018-01-24] MEDS: ENOXAPARIN SODIUM 30 MG/0.3 ML SYRINGE SQ SCH (20:58)
--- NOTE | 2018-01-24 21:11 | HHI.PR ---
Addendum to Inpatient Note Addendum Reason: Additional Documentation Additional Information Chart reviewed. notes reviewed appears to be clinically improved. BCX negative at 3 days. Ok to DC from ID standpoint. DC Ceftriaxone IV tonight Start Oral Levaquin. If tolerates well overnight ok to DC with Levaquin to complete 14 day course (stop date entered in [facility]) Will sign off please call back if any change in clinical condition or questions. Luciana Del Castillo MD Jan 24, 2018 21:11
[2018-01-25] VITALS: BP 142/63; PULSE 68; RESP 18; TEMP 98.3; O2SAT 93
[2018-01-25 04:00] VITALS: BP 127/60; PULSE 63; RESP 18; TEMP 98.1; O2SAT 93
[2018-01-25] MEDS: ACETAMINOPHEN/HYDROcodone 325 MG/7.5 MG TAB PO PRN ×2 (05:28→11:36)
[2018-01-25 07:31] VITALS: BP 111/66; PULSE 60; RESP 20; TEMP 98.5; O2SAT 92
[2018-01-25 07:53] LABS: BICARBONATE 25.7 MEQ/L (21.0-32.0); CALCIUM 9.3 MG/DL (8.5-10.1); CREATININE 1.25 MG/DL (0.50-1.00)
[2018-01-25] MEDS: LACTOBACILLUS ACIDOPHILUS TAB PO SCH ×2 (08:05→11:35)
[2018-01-25] MEDS: LISINOPRIL 20 MG TAB PO SCH (08:05)
[2018-01-25] MEDS: INSULIN DETEMIR 100 UNITS/ML VIAL SQ SCH (08:06)
[2018-01-25] MEDS: GABAPENTIN 300 MG CAP PO SCH (08:06)
[2018-01-25] MEDS: LORATADINE 10 MG TAB PO SCH (08:06)
[2018-01-25] MEDS: INSULIN ASPART SUPPLEMENTAL SCALE SQ SCH ×3 (08:07→16:50)
[2018-01-25] MEDS: SODIUM CHLORIDE 0.9% FLUSH 10 ML FLUSH IV FLUSH SCH (08:07)
[2018-01-25] MEDS ORDERED: LEVOFLOXACIN 750 MG TAB PO SCH (11:00)
[2018-01-25 12:19] VITALS: BP 188/81; PULSE 72; RESP 20; TEMP 98.5; O2SAT 96
[2018-01-25] MEDS: cloNIDine HCL 0.1 MG TAB PO PRN (12:28)
[2018-01-25 14:54] VITALS: BP 118/56
[2018-01-25] MEDS ORDERED: LEVA750T9 PO (16:21)
--- NOTE | 2018-01-25 16:22 | HHI.DS ---
Discharge Summary Admission Date Jan 20, 2018 at 19:24 Discharge Date: Jan 25, 2018 Admitting Diagnosis urosepsis (1) Hyperglycemia due to type 2 diabetes mellitus ICD Code: E11.65 - Type 2 diabetes mellitus with hyperglycemia Status: Acute (2) Sepsis ICD Code: A41.9 - Sepsis, unspecified organism (3) Pyelonephritis ICD Code: N12 - Tubulo-interstitial nephritis, not specified as acute or chronic Procedures none Brief History - From Admission 57-year-old female with past medical history significant for diabetes mellitus, neuropathy, degenerative disc disease, chronic kidney disease, hypertension and hyperlipidemia presents to the emergency department for evaluation of hip and back pain. The patient reports a one-week history of bilateral hip and lower back pain that has radiated to her flank. She reports increased urinary frequency/urgency. She also reports bladder cramping. Positive chills. No fevers. She endorses shortness of breath and nausea however denies chest pain and vomiting/diarrhea. She endorses chronic numbness in her hands and feet. Vital signs: Temperature 103.1, pulse 61, respirations 22, BP 128/60, pulse ox 97% on 2 L nasal cannula. CBC/BMP: 01/23/18 1040 01/25/18 0650 Significant Findings Laboratory Tests Test 01/23/18 10:40 01/24/18 11:00 01/25/18 06:50 Red Blood Count 3.36 MIL/MM3 (4.00-5.30) Hemoglobin 10.3 GM/DL (11.6-15.3) Hematocrit 29.9 % (35.0-46.0) Monocytes (%) (Auto) 8.9 % (0.0-8.0) Creatinine 1.05 MG/DL (0.50-1.00) 1.25 MG/DL (0.50-1.00) Random Glucose 167 MG/DL (74-106) 146 MG/DL (74-106) 133 MG/DL (74-106) Chloride Level 111 MEQ/L (98-107) 108 MEQ/L (98-107) 109 MEQ/L (98-107) Estimat Glomerular Filtration Rate 65 ML/MIN (>89) 71 ML/MIN (>89) 53 ML/MIN (>89) Imaging Last Impressions Chest X-Ray 01/23/18 0000 Signed Impressions: Service Date/Time: Tuesday, January 23, 2018 14:44 - CONCLUSION: No acute disease. No significant change has occurred. Solomon Ramírez MD Abdomen/Pelvis CT 01/20/18 1900 Signed Impressions: Service Date/Time: Saturday, January 20, 2018 19:31 - CONCLUSION: 1. No renal stones are identified. There is some very subtle inflammatory change around the left kidney. There is no significant hydronephrosis. This could suggest a possible pyelonephritis. 2. No free air or free fluid is identified. No findings to indicate bowel structure seen. 3. There are degenerative changes within the spine. Jerson Schwartz MD PE at Discharge GENERAL: Obese, female lying in bed SKIN: No rashes, ecchymoses or lesions. Cool and dry. Left TM intact CARDIOVASCULAR: Regular rate and rhythm without murmurs, gallops, or rubs. RESPIRATORY: Clear to auscultation. Decreased breath sounds equal bilaterally. No wheezes, rales, or rhonchi. GASTROINTESTINAL: Abdomen soft, slightly tender left lower quadrant, nondistended no guarding. Bilateral CVA tenderness MUSCULOSKELETAL: Extremities without clubbing, cyanosis, or edema. No joint tenderness, effusion, or edema noted. No calf tenderness. NEUROLOGICAL: Awake and alert. Cranial nerves II through XII intact. Motor and sensory grossly within normal limits. Normal speech. Pt update on day of discharge Pt feeling well. Has no complaints. Comfortable going home today. Denies any CP/ SOB/N/V Hospital Course Pt admitted for Severe sepsis with left pyelonephritis and E. coli bacteremia. Clinically improved. She received IV Rocephin and follow up repeat cultures negative to date since 01/21. ID evaluated the pt and cleared her to go w 14 days of levaquin. Pt's CrCl was calculated to be 42. Pt does have chronic CKD. Therefore dose of levaquin was set to 750mg po q48hrs for total of 14 days. Pt to f/u w PCP as an outpatient. Pt Condition on Discharge: Stable Discharge Disposition: Discharge Home Discharge Time: > 30 minutes Discharge Instructions DIET: Follow Instructions for: Heart Healthy Diet Activities you can perform: Regular-No Restrictions Follow up Referrals: PCP Follow-up - 1 Week New Medications: Lactobacillus Acidophilus (Lactinex) 1 Chew 1 TAB CHEW TID for Nutritional Supplement, #30 TAB 0 Refills Levofloxacin (Levaquin) 750 Mg Tablet 750 MG PO q48hr for Infection, #7 TAB 0 Refills to be started on 01/27/18 Continued Medications: Amlodipine (Amlodipine) 10 Mg Tab 10 MG PO DAILY for Blood Pressure Management, #30 TAB 3 Refills Gabapentin (Gabapentin) 800 Mg Tab 800 MG PO BID, #60 TAB 3 Refills Insulin Detemir Inj (Levemir Inj) 1,000 unit/ 10 ML Vial 85 UNITS SQ BID for Blood Sugar Management for 30 Days, #10 ML 3 Refills Do not mix with any other Insulin. Insulin Human Regular Inj (Novolin R Inj) 1,000 Unit/10 Ml Vial 0 SQ DIRECTED for Blood Sugar Management, #10 ML 3 Refills Sliding Scale As Directed. Lisinopril (Lisinopril) 20 Mg Tab 20 MG PO BID, #30 TAB 3 Refills Multiple Vitamins W/ Minerals (Multi-Vitamin/Minerals) 1 Tab Tab 1 TAB PO DAILY for Nutritional Supplement Elsy Fish MD Jan 25, 2018 16:22
[2018-01-25] MEDS ORDERED: LACTCHW3 CHEW (16:58)
[2018-01-25 18:12] LABS: AUTOMATED NEUTROPHIL # 4.4 TH/MM3 (1.8-7.7); BASOPHIL % 0.6 % (0.0-2.0); EOSINOPHIL # 0.3 TH/MM3 (0-0.4); EOSINOPHIL % 3.4 % (0.0-4.0); HEMATOCRIT 28.4 % (35.0-46.0); HEMOGLOBIN 9.8 GM/DL (11.6-15.3); LYMPH % 29.6 % (9.0-44.0); LYMPHOCYTE # 2.2 TH/MM3 (1.0-4.8); MEAN CELL VOLUME 89.6 FL (80.0-100.0); MEAN CORPUSCULAR HEMOGLOBIN 30.9 PG (27.0-34.0); MEAN CORPUSCULAR HGB CONC 34.5 % (32.0-36.0); MEAN PLATELET VOLUME 9.3 FL (7.0-11.0); MONO % 7.5 % (0.0-8.0); MONOCYTE # 0.6 TH/MM3 (0-0.9); NEUT % 58.9 % (16.0-70.0); PLATELET COUNT 215 TH/MM3 (150-450); RED BLOOD COUNT 3.17 MIL/MM3 (4.00-5.30); RED CELL DISTRIBUTION WIDTH 13.2 % (11.6-17.2); WHITE BLOOD COUNT 7.5 TH/MM3 (4.0-11.0)
[2018-01-25 19:21] LABS: LYMPHOCYTES 28 % (9-44); METAMYELOCYTES 1 % (0-1); MONOCYTES 4 % (0-8); NEUTROPHIL # MANUAL DIFF 4.9 TH/MM3 (1.8-7.7); POLYS (SEG NEUTROPHILS) 62 % (16-70); PROMYELOCYTES 2 % (0-0)
== END 2018-01-25 18:10 | disposition home or self-care (01) | DRG 872 ==
LOC: NEPC 17:19 → NEDA 19:24 → N05A 20:41
PROVIDERS: ADMIT Hospitalist; ATTEND Hospitalist
DX: A41.51 Sepsis due to Escherichia coli [E. coli] (principal); N17.9 Acute kidney failure, unspecified; E11.22 Type 2 diabetes mellitus with diabetic chronic kidney disease; E11.40 Type 2 diabetes mellitus with diabetic neuropathy, unspecified; N18.3 Chronic kidney disease, stage 3 (moderate); E11.649 Type 2 diabetes mellitus with hypoglycemia without coma; E11.65 Type 2 diabetes mellitus with hyperglycemia; N12 Tubulo-interstitial nephritis, not specified as acute or chronic; B96.20 Unspecified Escherichia coli [E. coli] as the cause of diseases classified elsewhere; R65.20 Severe sepsis without septic shock; G89.29 Other chronic pain; M54.5 Low back pain; M19.90 Unspecified osteoarthritis, unspecified site; K21.9 Gastro-esophageal reflux disease without esophagitis; E78.5 Hyperlipidemia, unspecified; D57.3 Sickle-cell trait; F17.210 Nicotine dependence, cigarettes, uncomplicated; E66.9 Obesity, unspecified; I12.9 Hypertensive chronic kidney disease with stage 1 through stage 4 chronic kidney disease, or unspecified chronic kidney disease; H69.90 Unspecified Eustachian tube disorder, unspecified ear; Z68.37 Body mass index [BMI] 37.0-37.9, adult; Z79.4 Long term (current) use of insulin; Z91.19 Patient's noncompliance with other medical treatment and regimen
CPT/HCPCS: 71045; 74176; 76937; 80048; 80053; 81001; 82947; 82948; 83036; 83605; 83735; 85007; 85025; 85027; 85610; 85730; 86403; 87040; 87077; 87086; 87186; 87205; 96361; 96374; 96375; 96376; J0696; J1650; J1815; J2270; J2405; J2543; J3370; J7030; J7050

== ENCOUNTER 2018-02-22 09:57 | Emergency (ER) | payer OTHER ==
[~2018-02-22] VITALS: Ht 165.1 cm; Wt 103.0 kg
[~2018-02-22 09:57] MED LIST changes: -CARDCAP2 PO; +LACTCHW3 CHEW; +LEVA750T9 PO; +MULTTAB62 PO; -[UNRECOGNIZED DRUG - CODE]
[2018-02-22 11:05] VITALS: BP 117/57; PULSE 82; RESP 18; TEMP 98.5; O2SAT 97
[2018-02-22 11:09] VITALS: BP 117/57; PULSE 77; RESP 18; TEMP 98.5; O2SAT 97
[2018-02-22] MEDS ORDERED: SODIUM CHLORIDE 0.9% FLUSH 10 ML FLUSH IV FLUSH PRN (12:00)
[2018-02-22] MEDS ORDERED: MORPHINE SULFATE 4 MG/ML INJ IV PUSH ONE (12:00)
[2018-02-22] MEDS ORDERED: ONDANSETRON HCL 4 MG/2 ML VIAL IVP ONE (12:00)
--- NOTE | 2018-02-22 12:03 | PD ---
HPI Chief Complaint: Abdominal Pain Time Seen by Provider: 11:40 Travel History International Travel<30 days: No Contact w/Intl Traveler<30days: No Traveled to known affect area: No History of Present Illness HPI 58-year-old female with PMH of DM presents to the ED for evaluation of 2 day history of chills, vaginal itching, vaginal discharge, left-sided back pain and abdominal pain. She endorses mild nausea. She denies fevers, vomiting, dysuria. She endorses chronic constipation, last bowel movement 2 days ago, well formed, nonbloody, after taking a dose of milk of magnesia. She also complains of grayish vaginal discharge. She denies unprotected sex. She states that she had similar symptoms 1 month ago when she was diagnosed with UTI. She denies vaginal bleeding. She states that her last [facility]LE[facility] [employer] check up was ~1 year ago. PFSH Past Medical History Hx Anticoagulant Therapy: No Arthritis: Yes Blood Disorders: No Anxiety: No Depression: No Heart Rhythm Problems: No Cancer: No Cardiovascular Problems: Yes High Cholesterol: Yes Chemotherapy: No Chest Pain: No Congestive Heart Failure: No Cerebrovascular Accident: No Diabetes: Yes Patient Takes Glucophage: No Diminished Hearing: No Endocrine: Yes Gastrointestinal Disorders: Yes GERD: Yes Genitourinary: Yes Headaches: Yes Hiatal Hernia: No Hypertension: Yes Immune Disorder: No Implanted Vascular Access Dvce: No Musculoskeletal: Yes Neurologic: No Psychiatric: No Reproductive: No Respiratory: No Immunizations Current: Yes Pneumonia: Yes Sickle Cell Disease: Yes (TRAIT) Thyroid Disease: No Ulcer: No Influenza Vaccination: No Menopausal: Yes : 2 Para: 2 Miscarriage: 1 Past Surgical History Abdominal Surgery: No Arteriovenous Shunt: No Cardiac Surgery: No Section: Yes (X 1) Ear Surgery: No Endocrine Surgery: No Eye Surgery: No Gynecologic Surgery: Yes (CSECTION) Hysterectomy: No Insulin Pump: No Joint Replacement: No Neurologic Surgery: No Oral Surgery: No Pacemaker: No Thoracic Surgery: No Other Surgery: Yes (C SECTION) Social History Alcohol Use: Yes (OCCASSIONAL) Tobacco Use: Yes Substance Use: No Allergies-Medications (Allergen,Severity, Reaction): Coded Allergies: tetanus toxoid, adsorbed (Unverified Allergy, Severe, "SWELLING", 02/22/18) Reported Meds & Prescriptions Reported Meds & Active Scripts Active Lactinex (Lactobacillus Acidophilus) 1 Chew 1 Tab CHEW TID Levaquin (Levofloxacin) 750 Mg Tablet 750 Mg PO Q48HR to be started on 01/27/18 Lisinopril 20 Mg Tab 20 Mg PO BID Amlodipine (Amlodipine Besylate) 10 Mg Tab 10 Mg PO DAILY Levemir Inj (Insulin Detemir) 1,000 unit/ 10 ML Vial 85 Units SQ BID 30 Days Do not mix with any other Insulin. Gabapentin 800 Mg Tab 800 Mg PO BID Novolin R Inj (Insulin Human Regular) 1,000 Unit/10 Ml Vial 0 SQ DIRECTED Sliding Scale As Directed. Reported Multi-Vitamin/Minerals (Multiple Vitamins W/ Minerals) 1 Tab Tab 1 Tab PO DAILY Review of Systems Except as stated in HPI: all other systems reviewed are Neg Physical Exam Narrative GENERAL: Well-nourished, well-developed obese black female in no acute distress. SKIN: Focused skin assessment warm/dry. HEAD: Normocephalic. EYES: No scleral icterus. No injection or drainage. NECK: Supple, trachea midline. No JVD or lymphadenopathy. CARDIOVASCULAR: Regular rate and rhythm without murmurs, gallops, or rubs. RESPIRATORY: Breath sounds clear and equal bilaterally. No accessory muscle use. GASTROINTESTINAL: Abdomen soft, nondistended, mildly tender in the upper quadrants. Active bowel sounds. GENITOURINARY: Normal external genitalia without lesions or erythema. Vaginal vault without blood. Scant thin, grayish drainage. There is a distinct fishy smell. Cervical os was closed without drainage. No cervical motion tenderness. Uterus nontender and nonenlarged. Bilateral adnexa nontender without masses. MUSCULOSKELETAL: No cyanosis, or edema. Moves easily from standing to sitting position. BACK: Nontender without obvious deformity. Positive left-sided CVA tenderness. Data Data Last Documented VS Vital Signs Date Time Temp Pulse Resp B/P (MAP) Pulse Ox O2 Delivery O2 Flow Rate FiO2 02/22/18 14:39 02/22/18 11:09 98.5 77 18 97 Room Air Orders Orders Complete Blood Count With Diff (02/22/18 11:25) Comprehensive Metabolic Panel (02/22/18 11:25) Lipase (02/22/18 11:25) Urinalysis - C+S If Indicated (02/22/18 11:25) Iv Access Insert/Monitor (02/22/18 11:50) Ecg Monitoring (02/22/18 11:50) Oximetry (02/22/18 11:50) Morphine Inj (Morphine Inj) (02/22/18 12:00) Ondansetron Inj (Zofran Inj) (02/22/18 12:00) Sodium Chloride 0.9% Flush (Ns Flush) (02/22/18 12:00) Gc And Chlamydia Pcr (02/22/18 11:50) Wet Prep Profile (02/22/18 11:50) Sodium Chlor 0.9% 1000 Ml Inj (Ns 1000 M (02/22/18 13:15) Insulin Human Regular Inj (Novolin R Inj (02/22/18 13:15) Blood Glucose (02/22/18 13:43) Ed Discharge Order (02/22/18 14:30) Labs Laboratory Tests Test 02/22/18 11:45 02/22/18 11:55 02/22/18 12:10 Urine Color LIGHT-YELLOW Urine Turbidity HAZY Urine pH 5.5 Urine Specific [place] 1.011 Urine Protein 30 mg/dL Urine Glucose (UA) 1000 mg/dL Urine Ketones NEG mg/dL Urine Occult Blood TRACE Urine Nitrite NEG Urine Bilirubin NEG Urine Urobilinogen LESS THAN 2.0 MG/DL Urine Leukocyte Esterase TRACE Urine RBC 1 /hpf Urine WBC 2 /hpf Urine Squamous Epithelial Cells 14 /hpf Urine Hyaline Casts 1 /lpf Urine Mucus FEW /lpf Microscopic Urinalysis Comment CULT NOT INDICATED White Blood Count 6.4 TH/MM3 Red Blood Count 4.19 MIL/MM3 Hemoglobin 12.5 GM/DL Hematocrit 37.3 % Mean Corpuscular Volume 88.9 FL Mean Corpuscular Hemoglobin 29.9 PG Mean Corpuscular Hemoglobin Concent 33.6 % Red Cell Distribution Width 13.9 % Platelet Count 240 TH/MM3 Mean Platelet Volume 10.1 FL Neutrophils (%) (Auto) 59.0 % Lymphocytes (%) (Auto) 35.5 % Monocytes (%) (Auto) 3.0 % Eosinophils (%) (Auto) 1.4 % Basophils (%) (Auto) 1.1 % Neutrophils # (Auto) 3.8 TH/MM3 Lymphocytes # (Auto) 2.3 TH/MM3 Monocytes # (Auto) 0.2 TH/MM3 Eosinophils # (Auto) 0.1 TH/MM3 Basophils # (Auto) 0.1 TH/MM3 CBC Comment DIFF FINAL Differential Comment Blood Urea Nitrogen 22 MG/DL Creatinine 2.01 MG/DL Random Glucose 438 MG/DL Total Protein 7.6 GM/DL Albumin 3.3 GM/DL Calcium Level 9.4 MG/DL Alkaline Phosphatase 117 U/L Aspartate Amino Transf (AST/SGOT) 16 U/L Alanine Aminotransferase (ALT/SGPT) 17 U/L Total Bilirubin 0.3 MG/DL Sodium Level 136 MEQ/L Potassium Level 4.8 MEQ/L Chloride Level 100 MEQ/L Carbon Dioxide Level 27.8 MEQ/L Anion Gap 8 MEQ/L Estimat Glomerular Filtration Rate 31 ML/MIN Lipase 309 U/L Clue Cells (Wet Prep) NONE SEEN Vaginal Trichomonas (Wet Prep) NONE SEEN Vaginal Yeast (Wet Prep) NONE SEEN Chlamydia trachomatis DNA (PCR) NOT DETECTED Neisseria gonorrhoeae DNA (PCR) NOT DETECTED MDM Medical Decision Making Medical Screen Exam Complete: Yes Emergency Medical Condition: Yes Differential Diagnosis Cystitis versus pyelonephritis versus vaginal candidiasis versus STI versus other Narrative Course 58-year-old female with PMH of DM presents to the ED for evaluation of 2 day history of chills, vaginal itching, vaginal discharge, left-sided back pain and abdominal pain. She endorses mild nausea. She denies fevers, vomiting, dysuria. She endorses chronic constipation, last bowel movement 2 days ago, well formed, nonbloody, after taking a dose of milk of magnesia. She also complains of grayish vaginal discharge. She denies unprotected sex. She states that she had similar symptoms 1 month ago when she was diagnosed with UTI. She denies vaginal bleeding. She states that her last [employer]LE[employer] check up was ~1 year ago. Vitals reviewed. On exam this is a nontoxic-appearing - [place] female in no acute distress. Abdominal exam is unremarkable. Pelvic exam reveals scant greyish foul-smelling discharge. Exam otherwise unremarkable. CBC: Unremarkable. CMP: BUN 22, creatinine 2.01. Glucose 438. Reviewed the patient's record, creatinine slightly above normal. UA: No culture indicated. Wet prep negative. Serology negative. Patient was administered 1 L normal saline, 5 units insulin IV. Fingerstick blood glucose 347 on recheck. Patient's instructed to monitor her sugars, consult with her primary care for possible medication adjustments. She should also follow-up with the psychiatric clinician for her vaginal symptoms. She indicated understanding of the instructions. She is agreeable with the care plan. She is stable and discharged home. Diagnosis Primary Impression: Hyperglycemia due to type 2 diabetes mellitus Qualified Codes: E11.65 - Type 2 diabetes mellitus with hyperglycemia; Z79.4 - intermediate frame tender (current) use of insulin Additional Impression: Itching in the vaginal area Referrals: [facility] Primary Care Physician Additional Instructions: Rest, hydrate. Monitor your blood sugars and reports empty her primary care at next visit. Continue home medications as they're prescribed. Follow with the psychiatric clinician and primary care provider for further evaluation. Return to the ED for worsening symptoms or any urgent or emergent medical condition. Disposition: 01 DISCHARGE HOME Condition: Stable Judy Franco Feb 22, 2018 12:02
[2018-02-22 12:10] LABS: AUTOMATED NEUTROPHIL # 3.8 TH/MM3 (1.8-7.7); BASOPHIL # 0.1 TH/MM3 (0-0.2); BASOPHIL % 1.1 % (0.0-2.0); EOSINOPHIL # 0.1 TH/MM3 (0-0.4); EOSINOPHIL % 1.4 % (0.0-4.0); HEMATOCRIT 37.3 % (35.0-46.0); HEMOGLOBIN 12.5 GM/DL (11.6-15.3); LYMPH % 35.5 % (9.0-44.0); LYMPHOCYTE # 2.3 TH/MM3 (1.0-4.8); MEAN CELL VOLUME 88.9 FL (80.0-100.0); MEAN CORPUSCULAR HEMOGLOBIN 29.9 PG (27.0-34.0); MEAN CORPUSCULAR HGB CONC 33.6 % (32.0-36.0); MEAN PLATELET VOLUME 10.1 FL (7.0-11.0); MONOCYTE # 0.2 TH/MM3 (0-0.9); PLATELET COUNT 240 TH/MM3 (150-450); RED BLOOD COUNT 4.19 MIL/MM3 (4.00-5.30); RED CELL DISTRIBUTION WIDTH 13.9 % (11.6-17.2); WHITE BLOOD COUNT 6.4 TH/MM3 (4.0-11.0)
[2018-02-22 12:24] LABS: BILIRUBIN, URINE NEG (NEG); BLOOD, URINE TRACE (NEG); GLUCOSE,URINE 1000 mg/dL (NEG); HYALINE CAST, URINE 1 /lpf (RARE); KETONE, URINE NEG (NEG); MUCUS URINE FEW /lpf (OCC); NITRITE,URINE NEG (NEG); PH, URINE 5.5 (5.0-8.5); SQUAMOUS EPITHELIAL CELL URINE 14 /hpf (0-5); URINE COLOR LIGHT-YELLOW (YELLW/STRAW); URINE LEUKOCYTE ESTERASE TRACE (NEG)
[2018-02-22 12:37] LABS: ALBUMIN 3.3 GM/DL (3.4-5.0); ALKALINE PHOSPHATASE 117 U/L (45-117); ALT (GPT) 17 U/L (10-53); AST (GOT) 16 U/L (15-37); BICARBONATE 27.8 MEQ/L (21.0-32.0); BLOOD UREA NITROGEN 22 MG/DL (7-18); CALCIUM 9.4 MG/DL (8.5-10.1); CHLORIDE 100 MEQ/L (98-107); CREATININE 2.01 MG/DL (0.50-1.00); GLOMERULAR FILTRATION RATE 31 ML/MIN (>89); GLUCOSE,RANDOM 438 MG/DL (74-106); SODIUM (NA) 136 MEQ/L (136-145); TOTAL BILIRUBIN ADULT 0.3 MG/DL (0.2-1.0); TOTAL PROTEIN 7.6 GM/DL (6.4-8.2)
[2018-02-22] MEDS ORDERED: SODIUM CHLOR 0.9% 1000 ML INJ 1,000 ML IV ONE (13:15)
[2018-02-22] MEDS ORDERED: INSULIN HUMAN REGULAR 1,000 UNITS/10 ML VIAL IV PUSH ONE (13:15)
== END 2018-02-22 15:04 | disposition home or self-care (01) ==
LOC: NEPE 09:57
DX: E11.65 Type 2 diabetes mellitus with hyperglycemia (principal); I10 Essential (primary) hypertension; K59.09 Other constipation; Z72.0 Tobacco use; Z79.4 Long term (current) use of insulin
CPT/HCPCS: 80053; 81001; 83690; 85025; 87210; 87491; 87591; 96361; 96374; 96375; 99284; J1815; J2270; J2405; J7030

== ENCOUNTER 2018-11-20 04:08 | Inpatient (IN) ==
[2018-11-20] MEDS ORDERED: Famotidine PF Inj 20 MG/2 ML Vial IV.PUSH ONE (04:21)
--- NOTE | 2018-11-20 04:25 | ED ---
HPI General Chief Complaint: Abdominal Pain Stated Complaint: ABD Pain Time Seen by Provider: 11/20/18 04:21 Source: patient Mode of arrival: ambulatory Limitations: no limitations History of Present Illness HPI narrative: 58-year-old female patient with history of pancreatitis, diabetes , presents to the ER today because of 2-3 days history of upper abdominal pains and right upper quadrant abdominal pains which she currently measures a 9 out of 10 and burning and constant pain. She reports nausea but denies any vomiting , fevers, diarrhea, or other symptoms. She states that feels just like last time. Modifying Factors: None Associated Signs & Symptoms: Nausea, burning abdominal pains Risk Factors: History of pancreatitis Related Data Home Medications Medication Instructions Recorded Confirmed gabapentin 800 mg PO BID 09/01/18 11/03/18 insulin glargine [Lantus U-100 50 unit SUBCUT BID 09/01/18 11/03/18 Insulin] lisinopril 20 mg PO DAILY 09/01/18 11/03/18 hydromorphone [Dilaudid] 8 mg PO Q6H PRN 11/03/18 11/03/18 insulin lispro [Humalog KwikPen 10 unit SUBCUT BID 11/03/18 11/03/18 Insulin] Previous Rx's Medication Instructions Recorded hydrocodone-acetaminophen [[place]] 1 tab PO Q6H PRN #10 tab 11/07/18 nifedipine [Procardia XL] 30 mg PO DAILY 30 Days #30 tab 11/07/18 Allergies Allergy/AdvReac Type Severity Reaction Status Date / Time tetanus toxoid, adsorbed Allergy Severe "SWELLING" Verified 11/20/18 04:13 Review of Systems ROS: all other systems reviewed are negative PMFSH History History Provided By: Patient Medical History Medical History Diabetes (Chronic) Hypertension (Chronic) Neuropathy (Chronic) Surgical History Surgical History H/O section (Chronic) Social History Social History Substance History: No History of Abuse Second Hand Smoke Exposure: Yes Smoking Status: Current every day smoker Tobacco Type: Cigarettes Cigarettes Per Day: 1.5 How Often Do You Have a Drink Containing Alcohol: 2 to 3 times a week Recent Travel in [place] within the Last 8 Weeks: No Recent Out of Country Travel within the Last 8 Weeks: No Exam Narrative Exam Narrative: GENERAL: Well-developed elderly -[place] female patient currently in moderate distress. Awake and oriented x3. SKIN: Focused skin assessment warm/dry. HEAD: Atraumatic. Normocephalic. EYES: Pupils equal and round. No scleral icterus. No injection or drainage. ENT: No nasal bleeding or discharge. Mucous membranes pink and moist. NECK: Trachea midline. No JVD. CARDIOVASCULAR: Regular rate and rhythm. No murmur appreciated. RESPIRATORY: No accessory muscle use. Clear to auscultation. Breath sounds equal bilaterally. GASTROINTESTINAL: Abdomen soft, right upper quadrant and midepigastric tenderness without guarding rebound, nondistended. Hepatic and splenic margins not palpable. MUSCULOSKELETAL: No obvious deformities. No clubbing. No cyanosis. No edema. NEUROLOGICAL: Awake and alert. No obvious cranial nerve deficits. Motor grossly within normal limits. Normal speech. PSYCHIATRIC: Appropriate mood and affect; insight and judgment normal. Course Initial Documented Vital Signs Temperature 97.7 F 11/20/18 04:09 Pulse Rate 71 11/20/18 04:09 Respiratory Rate 18 11/20/18 04:09 Blood Pressure 170/76 H 11/20/18 04:09 Pulse Oximetry 98 11/20/18 04:09 Last Documented Vital Signs Temperature 97.7 F 11/20/18 04:09 Pulse Rate 71 11/20/18 04:09 Respiratory Rate 18 11/20/18 04:09 Blood Pressure 170/76 H 11/20/18 04:09 Pulse Oximetry 98 11/20/18 04:09 Medical Decision Making [facility] Narrative Medical decision making narrative: Patient was given IV fluids, pain medications , nausea medications, and lab work returned showing significant lipase elevations. It appears that she has a pancreatitis. Case is then discussed with Dr. Cox for admission. Medical Screen Exam Complete: Yes Emergency Medical Condition: Yes Differential Diagnosis Differential Diagnosis: Gastritis versus hepatitis versus cholecystitis Lab Data Lab results reviewed: Yes I reviewed the patient's lab results. Result diagrams: 11/20/18 04:25 11/20/18 04:25 Lab Results 11/20/18 11/20/18 Range/Units 04:25 04:25 WBC 6.7 (4.0-11.0) th/mm3 RBC 4.08 (4.00-5.30) mil/mm3 Hgb 12.4 (11.6-15.3) gm/dL Hct 36.2 (35.0-46.0) % MCV 88.7 (80.0-100.0) fL MCH 30.3 (27.0-34.0) pg MCHC 34.2 (32.0-36.0) % RDW 12.8 (11.6-17.2) % Plt Count 236 D (150-450) th/mm3 MPV 9.1 (7.0-11.0) fL Neut % (Auto) 48.1 (16.0-70.0) % Lymph % (Auto) 41.7 (9.0-44.0) % Rhea % (Auto) 4.9 (0.0-8.0) % Eos % (Auto) 4.0 (0.0-4.0) % Baso % (Auto) 1.3 (0.0-2.0) % Neut # (Auto) 3.2 (1.8-7.7) th/mm3 Lymph # (Auto) 2.8 (1.0-4.8) th/mm3 Rhea # (Auto) 0.3 (0.0-0.9) th/mm3 Eos # (Auto) 0.3 (0.0-0.4) th/mm3 Baso # (Auto) 0.1 (0.0-0.2) th/mm3 WBC Differential . Differential Comment Auto diff final Sodium 142 (136-145) meq/L Potassium 4.4 (3.5-5.1) meq/L Chloride 111 H (98-107) meq/L Carbon Dioxide 26.9 (21.0-32.0) meq/L Anion Gap 4 L (5-15) meq/L BUN 20 H (7-18) mg/dL Creatinine 1.51 H (0.50-1.00) mg/dL Estimated GFR 43 L (>89) mL/min Random Glucose 154 H (74-106) mg/dL Calcium 8.9 (8.5-10.1) mg/dL Magnesium 2.6 H (1.5-2.5) mg/dL Total Bilirubin 0.3 (0.2-1.0) mg/dL AST 15 (15-37) U/L ALT 21 (10-53) U/L Alkaline Phosphatase 109 (45-117) U/L Total Protein 7.2 (6.4-8.2) g/dL Albumin 3.2 L (3.4-5.0) g/dL Lipase 3604 H (73-393) U/L Discharge Plan Discharge Disposition Patient Disposition: ED Admit(ED Internal Use Only) Discharge Condition Condition: Stable Discharge Order Discharge Orders: ED Use Only Admit Order (Routine); Ordered 11/20/18 Ordered By: Nataly Cloud Discharge Details Anticipated Discharge Date: 11/20/18 Diagnosis: Pancreatitis Physicians Team ED Provider: Nataly Cloud Primary Care Provider: Leena Alvarado Rxs /Orders / Referrals /Forms Prescriptions: No Action insulin glargine [Lantus U-100 Insulin] 100 unit/mL Solution 50 unit SUBCUT BID RF: 0 lisinopril 20 mg Tablet 20 mg PO DAILY RF: 0 gabapentin 800 mg Tablet 800 mg PO BID RF: 0 hydromorphone [Dilaudid] 8 mg Tablet 8 mg PO Q6H PRN (Reason: Breakthrough Pain, Severe) RF: 0 insulin lispro [Humalog KwikPen Insulin] 100 unit/mL Insulin Pen 10 unit SUBCUT BID RF: 0 nifedipine [Procardia XL] 30 mg Tablet Extended Release 24hr 30 mg PO DAILY 30 Days Qty: 30 RF: 0 hydrocodone-acetaminophen [[place]] 5-325 mg Tablet 1 tab PO Q6H PRN (Reason: acute pain) Qty: 10 RF: 0 Status ED Status: With Doctor
[2018-11-20 04:34] LABS: Baso # (Auto) 0.1 th/mm3 (0.0-0.2); Baso % (Auto) 1.3 % (0.0-2.0); Eos # (Auto) 0.3 th/mm3 (0.0-0.4); Hematocrit 36.2 % (35.0-46.0); Hemoglobin 12.4 gm/dL (11.6-15.3); Lymph # (Auto) 2.8 th/mm3 (1.0-4.8); Lymph % (Auto) 41.7 % (9.0-44.0); Mean Corpuscular HGB Conc 34.2 % (32.0-36.0); Mean Corpuscular Hemoglobin 30.3 pg (27.0-34.0); Mean Corpuscular Volume 88.7 fL (80.0-100.0); Mean Platelet Volume 9.1 fL (7.0-11.0); Mono # (Auto) 0.3 th/mm3 (0.0-0.9); Mono % (Auto) 4.9 % (0.0-8.0); Neut # (Auto) 3.2 th/mm3 (1.8-7.7); Neut % (Auto) 48.1 % (16.0-70.0); Platelet Count 236 th/mm3 (150-450); Red Blood Count 4.08 mil/mm3 (4.00-5.30); Red Cell Distribution Width 12.8 % (11.6-17.2); White Blood Count 6.7 th/mm3 (4.0-11.0)
[2018-11-20 05:00] LABS: Alkaline Phosphatase 109 U/L (45-117); Lipase 3604 U/L (73-393); Total Protein 7.2 g/dL (6.4-8.2)
[2018-11-20 05:01] LABS: Alanine Aminotransferase 21 U/L (10-53); Albumin 3.2 g/dL (3.4-5.0); Anion Gap 4 meq/L (5-15); Aspartate Aminotransferase 15 U/L (15-37); Blood Urea Nitrogen 20 mg/dL (7-18); Calcium 8.9 mg/dL (8.5-10.1); Carbon Dioxide 26.9 meq/L (21.0-32.0); Chloride 111 meq/L (98-107); Glomerular Filtration Rate 43 mL/min (>89); Glucose,Random 154 mg/dL (74-106); Magnesium 2.6 mg/dL (1.5-2.5); Sodium 142 meq/L (136-145)
[2018-11-20 05:02] LABS: Potassium 4.4 meq/L (3.5-5.1)
[2018-11-20] MEDS ORDERED: Morphine Inj 4 MG/ML Vial IV.PUSH ONE (05:09)
[2018-11-20] MEDS ORDERED: Haloperidol Inj 5 MG/ML Ampul IV.PUSH PRN (05:21)
[2018-11-20] MEDS ORDERED: Morphine Sulfate Inj 2 MG/ML Vial IV.PUSH PRN (05:21)
[2018-11-20] MEDS ORDERED: Bisacodyl 10 MG Supp RECTAL PRN (05:21)
[2018-11-20] MEDS ORDERED: Acetaminophen 325 MG Tablet PO PRN (05:21)
[2018-11-20] MEDS ORDERED: LORazepam 1 MG Tablet PO PRN (05:21)
[2018-11-20] MEDS: Sod Chloride 0.9% Inj 1,000 ML IV.CONT SCH ×2 (05:53→17:20)
--- NOTE | 2018-11-20 06:09 | US ---
EXAM DATE: 11/20/2018 5:44 AM EST AGE/SEX: 58 years / Female INDICATIONS: RUQ pain. CLINICAL DATA: This is the patient's subsequent encounter. Patient reports that signs and symptoms h ave been present for 3 weeks and indicates a pain score of 8/10. MEDICAL/SURGICAL HISTORY: . Diabetes. HTN. Neuropathy. section. COMPARISON: [facility] – [place], [place] ABDOMEN - GALLBLADDER, 11/05/2018. . MEASUREMENTS: Liver:__ 16.3 cm. Common Bile Duct:__ 4mm. FINDINGS: Liver: Increased echogenicity without focal lesion or ductal dilatation. Portal Vein: Hepatopedal flow seen in portal vein. Common Duct: No intraluminal mass or stone visualized. Gallbladder: Demonstrates no wall thickening or pericholecystic fluid. No stones visualized. Pancreas: The visualized portions are within normal limits Right Kidney: Increased echogenicity. No mass or hydronephrosis. Other: None. CONCLUSION: 1. Echogenic presumably fatty liver. No free fluid or mass identified. Gallbladder is distended with out significant wall thickening or mass Electronically signed by: Maxime Rios MD Board Certified Radiologist 11/20/2018 6:08 AM EST
[2018-11-20] MEDS: Pantoprazole Inj 40 MG Vial IV.PUSH SCH ×2 (06:45→17:24)
[2018-11-20] MEDS: Senna/Docusate Sodium 8.6/50 MG Tablet PO SCH ×3 (07:33→21:00)
[2018-11-20] MEDS: Multivitamin/Minerals Therapeutic Tablet PO SCH ×2 (07:33→08:03)
[2018-11-20] MEDS: Folic Acid 1 MG Tablet PO SCH ×2 (07:33→08:03)
--- NOTE | 2018-11-20 10:33 | P.HPIM ---
History of Present Illness Primary Care Physician: Leena Alvarado APRN Inpatient Certification Inpatient Certification: I certify that the inpatient services were ordered in accordance with Medicare regulations governing the order. This includes certification that hospital inpatient services are reasonable and necessary and in the case of services not specified as inpatient-only under 42 CFR 419.22(n), that they are appropriately provided as inpatient services in accordance to with the 2-midnight benchmark under 43 CFR 412.3(e) Estimated Total Length of Stay (Days): 2 Plans for Post Hospital Care: Not yet determined [facility] Medical History Medical History Diabetes (Chronic) Hypertension (Chronic) Neuropathy (Chronic) Surgical History Surgical History H/O section (Chronic) Family History Family History Father Diabetes mellitus Heart disease Mother Liver cirrhosis Social History Social History Substance History: No History of Abuse Second Hand Smoke Exposure: No Smoking Status: Current every day smoker Tobacco Type: Cigarettes Cigarettes Per Day: 1.5 How Often Do You Have a Drink Containing Alcohol: 2 to 4 times a month Recent Travel in [place] within the Last 8 Weeks: No Recent Out of Country Travel within the Last 8 Weeks: No Immunization History Tetanus Immunization: >5 Years Medications and Allergies Allergies Allergy/AdvReac Type Severity Reaction Status Date / Time tetanus toxoid, adsorbed Allergy Severe "SWELLING" Verified 11/20/18 04:13 Home Medications Medication Instructions Recorded Confirmed Type gabapentin 800 mg PO BID 09/01/18 11/20/18 History insulin glargine [Lantus U-100 50 unit SUBCUT BID 09/01/18 11/20/18 History Insulin] lisinopril 20 mg PO DAILY 09/01/18 11/20/18 History hydromorphone [Dilaudid] 8 mg PO Q6H PRN 11/03/18 11/20/18 History insulin lispro [Humalog KwikPen 10 unit SUBCUT BID 11/03/18 11/20/18 History Insulin] Active Medications: Active Medications Acetaminophen (Tylenol) 650 mg PO Q4H PRN PRN Reason: Temp > 100.4 Al Hydroxide/Mg Hydroxide (Milk Of Magnesia Liq) 30 ml PO Q12H PRN PRN Reason: Mild Constipation Bisacodyl (Dulcolax Supp) 10 mg RECTAL DAILY PRN PRN Reason: SEVERE CONSITIPATION Flumazenil (Romazecon Inj) 0.2 mg IV.PUSH Q1M PRN PRN Reason: OVERSEDATION Folic Acid (Folic Acid) 1 mg PO DAILY [facility] Stop: 11/25/18 08:59 Last Admin: 11/20/18 08:03 Dose: Not Given Haloperidol Lactate (Haldol Inj) 1 mg IV.PUSH Q15M PRN PRN Reason: for severe agitation Sodium Chloride (Ns Inj) 1,000 mls @ 100 mls/hr IV.CONT .Q10H [facility] Last Admin: 11/20/18 05:53 Dose: 100 mls/hr Lactulose (Lactulose Liq) 30 ml PO DAILY PRN PRN Reason: SEVERE CONSITIPATION Lorazepam (Ativan Inj) 1 mg IV.PUSH Q4H PRN PRN Reason: for CIWA 8-10 Lorazepam (Ativan Inj) 2 mg IV.PUSH Q15M PRN PRN Reason: for CIWA > 20 Lorazepam (Ativan Inj) 2 mg IV.PUSH Q1H PRN PRN Reason: for CIWA 15-20 Lorazepam (Ativan Inj) 2 mg IV.PUSH Q2H PRN PRN Reason: for CIWA 11-14 Lorazepam (Ativan) 1 mg PO Q4H PRN PRN Reason: for CIWA 8-10 Lorazepam (Ativan) 2 mg PO Q2H PRN PRN Reason: for CIWA 11-14 Morphine Sulfate (Morphine Inj) 2 mg IV.PUSH Q4H PRN PRN Reason: PAIN SCALE 6 TO 10 Last Admin: 11/20/18 10:10 Dose: 2 mg Multivitamins/Minerals (Theragran-M) 1 tab PO DAILY [facility] Stop: 11/25/18 08:59 Last Admin: 11/20/18 08:03 Dose: Not Given Ondansetron HCl (Zofran Inj) 4 mg IV.PUSH Q6H PRN PRN Reason: NAUSEA OR VOMITING Pantoprazole Sodium (Protonix Inj) 40 mg IV.PUSH Q12H [facility] Last Admin: 11/20/18 06:45 Dose: 40 mg Senna/Docusate Sodium (Yi-Colace) 1 tab PO BID [facility] Last Admin: 11/20/18 08:03 Dose: Not Given Sennosides (Senokot) 17.2 mg PO Q12H PRN PRN Reason: Moderate Constipation Sodium Chloride (Ns Flush) 2 ml IV.FLUSH PRN PRN PRN Reason: FLUSH AFTER USING IV ACCESS Last Admin: 11/20/18 04:47 Dose: 2 ml Sodium Chloride (Ns Flush) 2 ml IV.FLUSH PRN PRN PRN Reason: FLUSH AFTER USING IV ACCESS Sodium Chloride (Ns Flush) 2 ml IV.FLUSH BID [facility] Last Admin: 11/20/18 08:03 Dose: Not Given Thiamine HCl (Vitamin B1) 100 mg PO DAILY [facility] Last Admin: 11/20/18 08:03 Dose: Not Given Physical Exam Vital signs: Last Vital Signs Temp 98.1 F 11/20/18 08:00 Pulse 62 11/20/18 08:00 Resp 15 11/20/18 08:00 BP 201/87 H 11/20/18 08:00 Pulse Ox 98 11/20/18 08:00 Intake & Output 11/18/18 11/19/18 11/20/18 11/21/18 06:59 06:59 06:59 06:59 Weight 113.398 kg 114.6 kg Results Labs CBC & Chem 7: 11/20/18 04:25 11/20/18 04:25 Imaging Impressions Gallbladder Ultrasound 11/20/18 04:21 CONCLUSION: 1. Echogenic presumably fatty liver. No free fluid or mass identified. Gallbladder is distended without significant wall thickening or mass Caprini VTE Risk Assessment Caprini Risk Assessment Model: Point Value = 1 Point Value = 2 Point Value = 3 Point Value = 5 Age 41-60 Minor surgery BMI > 25 kg/m2 Swollen legs Varicose veins or History of unexplained or recurrent spontaneous Oral contraceptives or hormone replacement Sepsis (< 1 month) Serious lung disease, including pneumonia (< 1 month) Abnormal pulmonary function Acute myocardial infarction Congestive heart failure (< 1 month) History of inflammatory bowel disease Medical patient at bed rest Age 61-74 Arthroscopic surgery Major open surgery (> 45 min) Laparoscopic surgery (> 45 min) Malignancy Confined to bed (> 72 hours) Immobilizing plaster cast Central venous access Age >= 75 History of VTE Family history of VTE Factor V Leiden Prothrombin [id number] Lupus anticoagulant Anticardiolipin antibodies Elevated serum homocysteine Heparin-induced thrombocytopenia Other congenital or acquired thrombophilia Stroke (< 1 month) Elective arthroplasty Hip, pelvis, or leg fracture Acute spinal cord injury (< 1 month) Prophylaxis Regimen: Total Risk Factor Score Risk Level Prophylaxis Regimen 0-1 Low Early ambulation 2 Moderate Order ONE of the following: *Sequential Compression Device (SCD) *Heparin 5000 units SQ BID 3-4 Higher Order ONE of the following medications: *Heparin 5000 units SQ TID *Enoxaparin/Lovenox 40 mg SQ daily (WT < 150 kg, CrCl > 30 mL/min) *Enoxaparin/Lovenox 30 mg SQ daily (WT < 150 kg, CrCl > 10-29 mL/min) *Enoxaparin/Lovenox 30 mg SQ BID (WT < 150 kg, CrCl > 30 mL/min) AND/OR *Sequential Compression Device (SCD) 5 or more Highest Order ONE of the following medications: *Heparin 5000 units SQ TID (Preferred with Epidurals) *Enoxaparin/Lovenox 40 mg SQ daily (WT < 150 kg, CrCl > 30 mL/min) *Enoxaparin/Lovenox 30 mg SQ daily (WT < 150 kg, CrCl > 10-29 mL/min) *Enoxaparin/Lovenox 30 mg SQ BID (WT < 150 kg, CrCl > 30 mL/min) AND *Sequential Compression Device (SCD) H&P: Quality VTE Deep Vein Thrombosis/Pulmonary Embolism Present on Admission: No
[2018-11-20 10:47] LABS: Bilirubin,Urine Negative (Negative); Clarity,Urine Clear (Clear); Color,Urine Yellow (Yellw/Straw); Glucose,Urine (UA) Negative (Negative); Hyaline Casts,Urine 1 /lpf (0-3); Leukocyte Esterase,Urine Negative (Negative); Nitrite,Urine Negative (Negative); Specific Gravity,Urine 1.013 (1.002-1.035); Squamous Epithelial Cell,Urine 1 /hpf (0-5)
--- NOTE | 2018-11-20 11:04 | P.HPIM ---
History of Present Illness Primary Care Physician: Leena Alvarado APRN Chief Complaint: Abdominal pain History of Present Illness: 58-year-old female with a history of type 2 diabetes , chronic pain, hypertension, pancreatitis presents to the ER following 2-3 days of worsening left upper quadrant pain associated with nausea, not associated with vomiting. She states she was treated approximately 2 weeks ago for pancreatitis and discharged home once she had resolution of her symptoms. She admits that 3 days ago she had 2 beers and following that had onset of her symptoms. Looking back she has been admitted for pancreatitis approximately 3 times and all those times had to do with drinking alcohol. She does not drink excessively, however when I explained to her that alcohol was a trigger for pancreatitis she came to the same conclusion as to me that it is necessary for her to stop drinking altogether. She denies any fever, diarrhea, dysuria, cough. She denies any chest pain or dysrhythmia. Inpatient Certification Inpatient Certification: I certify that the inpatient services were ordered in accordance with Medicare regulations governing the order. This includes certification that hospital inpatient services are reasonable and necessary and in the case of services not specified as inpatient-only under 42 CFR 419.22(n), that they are appropriately provided as inpatient services in accordance to with the 2-midnight benchmark under 43 CFR 412.3(e) Estimated Total Length of Stay (Days): 2 Plans for Post Hospital Care: Not yet determined Review of Systems Review of Systems: all other systems reviewed are negative [facility] Medical History Medical History Diabetes (Chronic) Hypertension (Chronic) Neuropathy (Chronic) Surgical History Surgical History H/O section (Chronic) Family History Family History Father Diabetes mellitus Heart disease Mother Liver cirrhosis Social History Social History Substance History: No History of Abuse Second Hand Smoke Exposure: No Smoking Status: Current every day smoker Tobacco Type: Cigarettes Cigarettes Per Day: 1.5 How Often Do You Have a Drink Containing Alcohol: 2 to 4 times a month Recent Travel in [facility] within the Last 8 Weeks: No Recent Out of Country Travel within the Last 8 Weeks: No Immunization History Tetanus Immunization: >5 Years Medications and Allergies Allergies Allergy/AdvReac Type Severity Reaction Status Date / Time tetanus toxoid, adsorbed Allergy Severe "SWELLING" Verified 11/20/18 04:13 Home Medications Medication Instructions Recorded Confirmed Type gabapentin 800 mg PO BID 09/01/18 11/20/18 History insulin glargine [Lantus U-100 50 unit SUBCUT BID 09/01/18 11/20/18 History Insulin] lisinopril 20 mg PO DAILY 09/01/18 11/20/18 History hydromorphone [Dilaudid] 8 mg PO Q6H PRN 11/03/18 11/20/18 History insulin lispro [Humalog KwikPen 10 unit SUBCUT BID 11/03/18 11/20/18 History Insulin] Active Medications: Active Medications Acetaminophen (Tylenol) 650 mg PO Q4H PRN PRN Reason: Temp > 100.4 Hydrocodone Bitart/Acetaminophen ([place] 5/325) 1 tab PO Q6H PRN PRN Reason: acute pain Al Hydroxide/Mg Hydroxide (Milk Of Magnesia Liq) 30 ml PO Q12H PRN PRN Reason: Mild Constipation Bisacodyl (Dulcolax Supp) 10 mg RECTAL DAILY PRN PRN Reason: SEVERE CONSITIPATION Flumazenil (Romazecon Inj) 0.2 mg IV.PUSH Q1M PRN PRN Reason: OVERSEDATION Folic Acid (Folic Acid) 1 mg PO DAILY [facility] Stop: 11/25/18 08:59 Last Admin: 11/20/18 08:03 Dose: Not Given Haloperidol Lactate (Haldol Inj) 1 mg IV.PUSH Q15M PRN PRN Reason: for severe agitation Sodium Chloride (Ns Inj) 1,000 mls @ 100 mls/hr IV.CONT .Q10H [facility] Last Admin: 11/20/18 05:53 Dose: 100 mls/hr Lactulose (Lactulose Liq) 30 ml PO DAILY PRN PRN Reason: SEVERE CONSITIPATION Lisinopril (Prinivil) 20 mg PO DAILY [facility] Lorazepam (Ativan Inj) 1 mg IV.PUSH Q4H PRN PRN Reason: for CIWA 8-10 Lorazepam (Ativan Inj) 2 mg IV.PUSH Q15M PRN PRN Reason: for CIWA > 20 Lorazepam (Ativan Inj) 2 mg IV.PUSH Q1H PRN PRN Reason: for CIWA 15-20 Lorazepam (Ativan Inj) 2 mg IV.PUSH Q2H PRN PRN Reason: for CIWA 11-14 Lorazepam (Ativan) 1 mg PO Q4H PRN PRN Reason: for CIWA 8-10 Lorazepam (Ativan) 2 mg PO Q2H PRN PRN Reason: for CIWA 11-14 Morphine Sulfate (Morphine Inj) 2 mg IV.PUSH Q4H PRN PRN Reason: PAIN SCALE 6 TO 10 Last Admin: 11/20/18 10:10 Dose: 2 mg Multivitamins/Minerals (Theragran-M) 1 tab PO DAILY [facility] Stop: 11/25/18 08:59 Last Admin: 11/20/18 08:03 Dose: Not Given Nifedipine (Procardia Xl) 30 mg PO DAILY [facility] Non-Formulary Medication (Hydromorphone [Dilaudid]) 8 mg PO Q6H PRN PRN Reason: Breakthrough Pain, Severe Non-Formulary Medication (Gabapentin [Gabapentin]) 800 mg PO BID [facility] Ondansetron HCl (Zofran Inj) 4 mg IV.PUSH Q6H PRN PRN Reason: NAUSEA OR VOMITING Pantoprazole Sodium (Protonix Inj) 40 mg IV.PUSH Q12H [facility] Last Admin: 11/20/18 06:45 Dose: 40 mg Senna/Docusate Sodium (Yi-Colace) 1 tab PO BID [facility] Last Admin: 11/20/18 08:03 Dose: Not Given Sennosides (Senokot) 17.2 mg PO Q12H PRN PRN Reason: Moderate Constipation Sodium Chloride (Ns Flush) 2 ml IV.FLUSH PRN PRN PRN Reason: FLUSH AFTER USING IV ACCESS Last Admin: 11/20/18 04:47 Dose: 2 ml Sodium Chloride (Ns Flush) 2 ml IV.FLUSH PRN PRN PRN Reason: FLUSH AFTER USING IV ACCESS Sodium Chloride (Ns Flush) 2 ml IV.FLUSH BID [facility] Last Admin: 11/20/18 08:03 Dose: Not Given Thiamine HCl (Vitamin B1) 100 mg PO DAILY [facility] Last Admin: 11/20/18 08:03 Dose: Not Given Physical Exam Vital signs: Last Vital Signs Temp 98.1 F 11/20/18 08:00 Pulse 62 11/20/18 08:00 Resp 15 11/20/18 08:00 BP 201/87 H 11/20/18 08:00 Pulse Ox 98 11/20/18 08:00 Intake & Output 11/18/18 11/19/18 11/20/18 11/21/18 06:59 06:59 06:59 06:59 Weight 113.398 kg 114.6 kg Narrative: GENERAL: AAOx3, no acute distress, adequate nutrition, obese SKIN: Warm and dry, no rashes. HEAD: Atraumatic. Normocephalic. EYES: Pupils equal, round, reactive to light. No scleral icterus. No injection or drainage. ENT: No nasal bleeding or discharge. Moist mucous membranes. Nonerythematous oropharynx. NECK: Trachea midline. No JVD. Thyroid size within normal limits. CARDIOVASCULAR: Regular rate and rhythm. No murmur, no gallops, no rubs. RESPIRATORY: Clear and equal to auscultation bilaterally. No crackles, no wheezes. No accessory muscle use. GASTROINTESTINAL: Abdomen soft, non-tender, nondistended, normal active bowel sounds. Hepatic and splenic margins not palpable. MUSCULOSKELETAL: Extremities without clubbing or cyanosis. No obvious deformities. No edema. NEUROLOGICAL: Awake and alert. No obvious cranial nerve deficits. Motor grossly within normal limits. No focal deficits. Five out of 5 muscle strength in the arms and legs. Normal speech. PSYCHIATRIC: Appropriate mood and affect; insight and judgment normal. Results Labs CBC & Chem 7: 11/20/18 04:25 11/20/18 04:25 Imaging Impressions Gallbladder Ultrasound 11/20/18 04:21 CONCLUSION: 1. Echogenic presumably fatty liver. No free fluid or mass identified. Gallbladder is distended without significant wall thickening or mass Caprini VTE Risk Assessment Caprini VTE Risk Assessment: Moderate/High Risk (score >= 2) Caprini Risk Assessment Model: Point Value = 1 Point Value = 2 Point Value = 3 Point Value = 5 Age 41-60 Minor surgery BMI > 25 kg/m2 Swollen legs Varicose veins or History of unexplained or recurrent spontaneous Oral contraceptives or hormone replacement Sepsis (< 1 month) Serious lung disease, including pneumonia (< 1 month) Abnormal pulmonary function Acute myocardial infarction Congestive heart failure (< 1 month) History of inflammatory bowel disease Medical patient at bed rest Age 61-74 Arthroscopic surgery Major open surgery (> 45 min) Laparoscopic surgery (> 45 min) Malignancy Confined to bed (> 72 hours) Immobilizing plaster cast Central venous access Age >= 75 History of VTE Family history of VTE Factor V Leiden Prothrombin [id number] Lupus anticoagulant Anticardiolipin antibodies Elevated serum homocysteine Heparin-induced thrombocytopenia Other congenital or acquired thrombophilia Stroke (< 1 month) Elective arthroplasty Hip, pelvis, or leg fracture Acute spinal cord injury (< 1 month) Prophylaxis Regimen: Total Risk Factor Score Risk Level Prophylaxis Regimen 0-1 Low Early ambulation 2 Moderate Order ONE of the following: *Sequential Compression Device (SCD) *Heparin 5000 units SQ BID 3-4 Higher Order ONE of the following medications: *Heparin 5000 units SQ TID *Enoxaparin/Lovenox 40 mg SQ daily (WT < 150 kg, CrCl > 30 mL/min) *Enoxaparin/Lovenox 30 mg SQ daily (WT < 150 kg, CrCl > 10-29 mL/min) *Enoxaparin/Lovenox 30 mg SQ BID (WT < 150 kg, CrCl > 30 mL/min) AND/OR *Sequential Compression Device (SCD) 5 or more Highest Order ONE of the following medications: *Heparin 5000 units SQ TID (Preferred with Epidurals) *Enoxaparin/Lovenox 40 mg SQ daily (WT < 150 kg, CrCl > 30 mL/min) *Enoxaparin/Lovenox 30 mg SQ daily (WT < 150 kg, CrCl > 10-29 mL/min) *Enoxaparin/Lovenox 30 mg SQ BID (WT < 150 kg, CrCl > 30 mL/min) AND *Sequential Compression Device (SCD) Assessment and Plan Plan Acute pancreatitis Treated for this 2 weeks ago, triggered by 2 beers approximately 3 days ago We had a discussion about alcohol and pancreatitis, despite her low use is recommended to never drink alcohol again since this is a predictable trigger for her Continue with IV fluid hydration Start slow with diabetic diet May discharge home when pain free, tolerating p.o., downward trend of lipase evident Hypertension Resume lisinopril and nifedipine Clonidine for breakthrough as needed Type 2 diabetes Accu-Cheks with sliding scale insulin coverage Diabetic diet Chronic pain Resume home meds hydrocodone and hydromorphone p.o. as needed DVT prophylaxis SCDs Discharge planning Patient may be discharged when pain-free, tolerating p.o., lipase trending downward H&P: Quality VTE Deep Vein Thrombosis/Pulmonary Embolism Present on Admission: No
[2018-11-20] MEDS: Lisinopril 20 MG Tablet PO SCH (13:25)
[2018-11-20] MEDS: Gabapentin 400 MG Capsule PO SCH (13:27)
[2018-11-21] MEDS: Gabapentin 400 MG Capsule PO SCH ×3 (03:34→23:51)
[2018-11-21] MEDS: Sod Chloride 0.9% Inj 1,000 ML IV.CONT SCH ×2 (03:35→12:42)
[2018-11-21] MEDS: Pantoprazole Inj 40 MG Vial IV.PUSH SCH ×2 (05:50→17:28)
[2018-11-21] MEDS: Multivitamin/Minerals Therapeutic Tablet PO SCH (08:55)
[2018-11-21] MEDS: Senna/Docusate Sodium 8.6/50 MG Tablet PO SCH ×2 (08:55→23:45)
[2018-11-21] MEDS: Lisinopril 20 MG Tablet PO SCH (08:56)
[2018-11-21] MEDS: Folic Acid 1 MG Tablet PO SCH (08:56)
[2018-11-21 10:01] LABS: Baso # (Auto) 0.1 th/mm3 (0.0-0.2); Eos # (Auto) 0.2 th/mm3 (0.0-0.4); Eos % (Auto) 3.8 % (0.0-4.0); Hematocrit 30.6 % (35.0-46.0); Hemoglobin 10.4 gm/dL (11.6-15.3); Lymph # (Auto) 2.9 th/mm3 (1.0-4.8); Mean Corpuscular HGB Conc 33.9 % (32.0-36.0); Mean Corpuscular Hemoglobin 30.4 pg (27.0-34.0); Mean Corpuscular Volume 89.9 fL (80.0-100.0); Mean Platelet Volume 9.9 fL (7.0-11.0); Mono # (Auto) 0.3 th/mm3 (0.0-0.9); Mono % (Auto) 5.1 % (0.0-8.0); Neut # (Auto) 2.5 th/mm3 (1.8-7.7); Neut % (Auto) 42.1 % (16.0-70.0); Platelet Count 180 th/mm3 (150-450); Red Cell Distribution Width 12.8 % (11.6-17.2); White Blood Count 5.9 th/mm3 (4.0-11.0)
[2018-11-21 10:21] LABS: Albumin 2.7 g/dL (3.4-5.0); Anion Gap 9 meq/L (5-15); Aspartate Aminotransferase 12 U/L (15-37); Blood Urea Nitrogen 21 mg/dL (7-18); Calcium 8.2 mg/dL (8.5-10.1); Carbon Dioxide 24.4 meq/L (21.0-32.0); Chloride 112 meq/L (98-107); Glomerular Filtration Rate 40 mL/min (>89); Glucose,Random 125 mg/dL (74-106); Lipase 418 U/L (73-393); Potassium 4.4 meq/L (3.5-5.1); Sodium 145 meq/L (136-145)
[2018-11-21 10:22] LABS: Alanine Aminotransferase 17 U/L (10-53)
[2018-11-21 10:25] LABS: Alkaline Phosphatase 85 U/L (45-117)
--- NOTE | 2018-11-21 14:24 | P.PNIM ---
Subjective Interval history: The patient is in bed says she still has some pain in her belly however is fairly controlled by medications. Says she is able to tolerate some food today. No nausea or vomiting. No diarrhea. Physical Exam Vital signs: Last Vital Signs Temp 97.7 F 11/21/18 08:00 Pulse 70 11/21/18 08:00 Resp 18 11/21/18 13:31 BP 182/81 H 11/21/18 08:00 Pulse Ox 94 L 11/21/18 08:00 Intake & Output 11/19/18 11/20/18 11/21/18 11/22/18 06:59 06:59 06:59 06:59 Intake Total 2120 / 2120 1000 / 1000 Output Total 200 / 200 Balance 1920 / 1920 1000 / 1000 Weight 113.398 kg 119.9 kg Narrative: GENERAL: AAOx3, no acute distress, adequate nutrition, obeseatous oropharynx. NECK: Trachea midline. No JVD. Thyroid size within normal limits. CARDIOVASCULAR: Regular rate and rhythm. No murmur, no gallops, no rubs. RESPIRATORY: Clear and equal to auscultation bilaterally. No crackles, no wheezes. No accessory muscle use. GASTROINTESTINAL: Abdomen soft, non-tender, nondistended, normal active bowel sounds. Hepatic and splenic margins not palpable. MUSCULOSKELETAL: Extremities without clubbing or cyanosis. No obvious deformities. No edema. NEUROLOGICAL: Awake and alert. No obvious cranial nerve deficits. Motor grossly within normal limits. No focal deficits. Five out of 5 muscle strength in the arms and legs. Normal speech. PSYCHIATRIC: Appropriate mood and affect; insight and judgment normal. Results Labs CBC & Chem 7: 11/21/18 06:19 11/21/18 06:19 Assessment and Plan Plan Acute pancreatitis Treated for this 2 weeks ago, triggered by 2 beers approximately 3 days ago We had a discussion about alcohol and pancreatitis, despite her low use is recommended to never drink alcohol again since this is a predictable trigger for her Continue with IV fluid hydration Start slow with diabetic diet May discharge home when pain free, tolerating p.o., downward trend of lipase evident Hypertension Resume lisinopril and nifedipine Clonidine for breakthrough as needed Type 2 diabetes Accu-Cheks with sliding scale insulin coverage Diabetic diet Chronic pain Resume home meds hydrocodone and hydromorphone p.o. as needed DVT prophylaxis SCDs Discharge planning DC when pain-free, tolerating p.o., lipase trending downward Progress Note: Quality VTE Deep Vein Thrombosis/Pulmonary Embolism Present on Admission: No
[2018-11-22] MEDS: Sod Chloride 0.9% Inj 1,000 ML IV.CONT SCH ×3 (01:33→09:39)
[2018-11-22] MEDS: Pantoprazole Inj 40 MG Vial IV.PUSH SCH (05:32)
[2018-11-22 07:18] LABS: Baso % (Auto) 0.7 % (0.0-2.0); Eos # (Auto) 0.2 th/mm3 (0.0-0.4); Eos % (Auto) 3.2 % (0.0-4.0); Hematocrit 31.9 % (35.0-46.0); Hemoglobin 10.8 gm/dL (11.6-15.3); Lymph % (Auto) 34.1 % (9.0-44.0); Mean Corpuscular HGB Conc 33.9 % (32.0-36.0); Mean Corpuscular Hemoglobin 30.2 pg (27.0-34.0); Mean Corpuscular Volume 89.1 fL (80.0-100.0); Mean Platelet Volume 9.9 fL (7.0-11.0); Mono # (Auto) 0.3 th/mm3 (0.0-0.9); Mono % (Auto) 4.7 % (0.0-8.0); Neut # (Auto) 3.4 th/mm3 (1.8-7.7); Neut % (Auto) 57.3 % (16.0-70.0); Platelet Count 162 th/mm3 (150-450); Red Blood Count 3.58 mil/mm3 (4.00-5.30); Red Cell Distribution Width 12.9 % (11.6-17.2)
[2018-11-22 07:41] LABS: Calcium 8.5 mg/dL (8.5-10.1); Carbon Dioxide 27.6 meq/L (21.0-32.0); Potassium 4.2 meq/L (3.5-5.1)
[2018-11-22 08:58] VITALS: BP 130/71; PULSE 60; RESP 16; TEMP 98.1; O2SAT 95
[2018-11-22] MEDS: Senna/Docusate Sodium 8.6/50 MG Tablet PO SCH (09:40)
[2018-11-22] MEDS: Folic Acid 1 MG Tablet PO SCH (09:40)
[2018-11-22] MEDS: Lisinopril 20 MG Tablet PO SCH (09:40)
[2018-11-22] MEDS: Gabapentin 400 MG Capsule PO SCH (09:40)
[2018-11-22] MEDS: Multivitamin/Minerals Therapeutic Tablet PO SCH (09:40)
--- NOTE | 2018-11-22 10:33 | P.DS ---
Date of admission: 11/20/18 05:24 Primary care physician: Leena Alvarado APRN Brief History from admission: 58-year-old female with a history of type 2 diabetes, chronic pain, hypertension , pancreatitis presents to the ER following 2-3 days of worsening left upper quadrant pain associated with nausea, not associated with vomiting. She states she was treated approximately 2 weeks ago for pancreatitis and discharged home once she had resolution of her symptoms. Patient admits to drinking alcohol and has been admitted previously a proximally 3 times due to pancreatitis. DS: Summary Hospital Course: 1. Acute pancreatitis This patient is a 4-year-old female with a diagnosis of hypertension, diabetes mellitus type 2, chronic pain, hypertension. The patient presented to our emergency room with complaints of abdominal pain after drinking beer while the patient was at home. Patient says that she has been admitted in the past for pancreatitis and it usually they have been triggered by alcohol drinking. Patient states she drinks about 1-2 times per week each time drinking about 4-5 beers on those days. In the emergency department the patient was found to have a lipase above 3000. She was subsequently admitted and initially kept n.p.o. Patient was treated aggressively with IV fluids. Repeat lipase showed a down trend, the patient's abdominal pain improved and she was started on a p.o. diet. The patient is tolerating her p.o. diet and is now requesting to go home. The patient is stable to be discharged and will be discharged home. The patient was advised to avoid alcohol as this is likely the trigger for pancreatitis. 2. Hypertension The patient takes nifedipine and lisinopril at home. The patient was advised to continue to take her blood pressure medications. During auscultation her systolic blood pressure has ran around 140-160. Currently her systolic blood pressure is 130s. She is advised to check her blood pressure at home, log it, and present the blood pressure log to her primary care doctor this way the primary care doctor can adjust her blood pressure medications as needed. 3. CKD 3a Patients GFR 46 currently. Patient should follow up with pcp in 1-2 weeks. Patient should have continued monitoring of her Kidney function given her DM, and HTN. 4. Alcohol abuse Patient was advised to avoid alcohol. There are absolutely no signs of alcohol withdrawals. Patient will be discharged home today. These instruction were given to the patient. - Time Spent with Patient Total time spent providing and/or coordinating discharge services: Greater than 30 minutes - Quality: VTE Deep Vein Thrombosis/Pulmonary Embolism Present on Admission: No Exam Vital signs: Vital Signs 11/21/18 12:00 11/21/18 13:31 11/21/18 16:00 Temperature 98.4 F 97.5 F L Pulse Rate 61 81 Respiratory Rate 14 18 15 Blood Pressure 170/74 H 148/68 H Pulse Oximetry 96 93 L 11/21/18 20:00 11/22/18 00:00 11/22/18 03:51 Temperature 98.1 F 98.2 F 98 F Pulse Rate 73 68 66 Respiratory Rate 20 18 20 Blood Pressure 163/71 H 177/77 H 178/79 H Pulse Oximetry 96 94 L 97 11/22/18 08:00 Temperature 98.1 F Pulse Rate 60 Respiratory Rate 16 Blood Pressure 130/71 Pulse Oximetry 95 Intake & Output 11/21/18 11/22/18 11/22/18 18:59 06:59 18:59 Intake Total 1000 / 1000 1999 Balance 1000 / 1000 1999 Weight 117.7 kg Intake: IV 1000 / 1000 1999 NS Inj 1,000 ML @ 100 mls/hr IV 1000 / 1000 1999 .CONT .Q10H [facility] Rx#:[id number] Other: # Voids 3 1 Date of Last Bowel Movement 11/21/18 # Bowel Movements 1 Narrative: General patient in no acute distress HEENT extraocular movements are intact, clear oropharyngeal mucosa, no JVD Cardiovascular S1-S2 audible, RRR, no murmurs rubs or gallops Respiratory clear to auscultation bilaterally Abdomen soft, nontender, nondistended, normal bowel sounds Extremities no edema 2+ distal pulses in bilateral upper and lower extremities Neuro cranial nerves II through XII intact Results Procedures completed during hospitalization: None Labs on day of discharge: Labs from last 24 hours 11/22/18 11/22/18 11/22/18 06:10 06:10 01:42 WBC 6.0 RBC 3.58 L Hgb 10.8 L Hct 31.9 L MCV 89.1 MCH 30.2 MCHC 33.9 RDW 12.9 Plt Count 162 MPV 9.9 Neut % (Auto) 57.3 Lymph % (Auto) 34.1 [place] % (Auto) 4.7 Eos % (Auto) 3.2 Baso % (Auto) 0.7 Neut # (Auto) 3.4 Lymph # (Auto) 2.0 [place] # (Auto) 0.3 Eos # (Auto) 0.2 Baso # (Auto) 0.0 WBC Differential . Differential Comment Auto diff final Sodium 143 Potassium 4.2 Chloride 108 H Carbon Dioxide 27.6 Anion Gap 7 BUN 15 Creatinine 1.42 H Estimated GFR 46 L POC Glucose 212 H Random Glucose 208 H Calcium 8.5 Total Bilirubin Alkaline Phosphatase Total Protein Lipase 295 11/21/18 11/21/18 11/21/18 16:46 12:19 06:19 WBC RBC Hgb Hct MCV MCH MCHC RDW Plt Count MPV Neut % (Auto) Lymph % (Auto) [place] % (Auto) Eos % (Auto) Baso % (Auto) Neut # (Auto) Lymph # (Auto) [place] # (Auto) Eos # (Auto) Baso # (Auto) WBC Differential Differential Comment Sodium Potassium Chloride Carbon Dioxide Anion Gap BUN Creatinine Estimated GFR POC Glucose 251 H 163 H Random Glucose Calcium Total Bilirubin 0.2 Alkaline Phosphatase 85 Total Protein 6.0 L D Lipase - Impressions ITS Impressions Gallbladder Ultrasound 11/20/18 04:21 CONCLUSION: 1. Echogenic presumably fatty liver. No free fluid or mass identified. Gallbladder is distended without significant wall thickening or mass Discharge Plan - Discharge Disposition Patient Disposition: 01 Discharge Home - Discharge Condition Condition: Stable - Discharge Order Discharge Orders: Discharge Order (Routine); Ordered 11/22/18 Ordered By: Veronica Wagner ED Use Only Admit Order (Routine); Ordered 11/20/18 Ordered By: Nataly Cloud - Discharge Details Anticipated Discharge Date: 11/20/18 - Physicians Team Primary Care Provider: Leena Alvarado Attending Provider: Veronica Wagner Other Providers: [employer],Insurance
== END 2018-11-22 12:16 | disposition home or self-care (01) ==
LOC: NEPC 04:08 → NEDA 05:24 → N07 07:49
PROVIDERS: ADMIT Hospitalist; ATTEND Hospitalist